=== PATIENT | female | born 1975 | race Caucasian/White ===

== ENCOUNTER 2023-03-05 16:21 | Outpatient (CLI) | payer MEDICARE, SELFPAY | END 2023-03-05 16:22 | disposition home or self-care (01) | PROVIDERS: PCP Family Medicine; Visit Provider Family Medicine | DX: Z13.228 Encounter for screening for other metabolic disorders (principal); R53.83 Other fatigue; E66.01 Morbid (severe) obesity due to excess calories | CPT/HCPCS: 80048; 80061; 84460 ==

== ENCOUNTER 2023-04-08 10:34 | Outpatient (CLI) | payer MEDICARE, SELFPAY ==
--- NOTE | 2023-04-08 11:00 | CRLHL7_ITS ---
For Patients: As a result of the Century Cures Act, medical imaging exams and procedure reports are released immediately into your electronic medical record. You may view this report before your referring provider. If you have questions, please contact your health care provider. Indication: Abd pain, chronic RLQ pain Technique: CT Abdomen/Pelvis w/ 114cc Isovue-[address] Please note that all CT scans at this facility use dose modulation, iterative reconstruction, and/or weight-based dosing when appropriate to reduce radiation dose to as low as reasonably achievable. Comparison: 10/08/2017 Findings: Lung bases are clear. No free intraperitoneal air. Subcentimeter benign cyst in liver is unchanged. Stable small hypodensity in the right hepatic lobe. The gallbladder is normal. No biliary duct dilation. Normal pancreas. Normal spleen. Adrenal glands are normal. The bladder, ureters and kidneys are within normal limits. Incidental subcentimeter cysts within the right kidney. The uterus is normal. Normal right ovary. 1.5 cm simple cyst left ovary. Terminal ileum is normal. Appendix is absent. No bowel obstruction or free fluid. No abscess. No adenopathy. Similar appearance of the endocervix. No fracture. Impression: Postoperative changes of appendectomy. No inflammatory changes. No bowel obstruction. Please note that all CT scans at this facility use dose modulation, iterative reconstruction, and/or weight-based dosing when appropriate to reduce radiation dose to as low as reasonably achievable. Dictated by Kiran Mcconnell MD @ 04/08/2023 3:41:55 PM (Electronically Signed)
== END 2023-04-08 10:35 | disposition home or self-care (01) ==
LOC: CT 10:35
PROVIDERS: PCP Family Medicine; Visit Provider Family Medicine
DX: R10.9 Unspecified abdominal pain (principal); G89.29 Other chronic pain
CPT/HCPCS: 74177; Q9967

== ENCOUNTER 2023-04-15 09:52 | Outpatient (CLI) | payer MEDICARE, SELFPAY ==
--- NOTE | 2023-04-15 11:01 | W.ANESCHARGE ---
Anesthesia Charges Start Date/Time Anesthesia Start Date: 04/15/23 Anesthesia Start Time: 10:35 Stop Date/Time Anesthesia Stop Date: 04/15/23 Anesthesia Stop Time: 11:01
--- NOTE | 2023-04-15 11:09 | W.ANESCHARGE ---
Anesthesia Charges Start Date/Time Anesthesia Start Date: 04/15/23 Anesthesia Start Time: 10:35 Stop Date/Time Anesthesia Stop Date: 04/15/23 Anesthesia Stop Time: 11:01
== END 2023-04-15 09:53 | disposition home or self-care (01) ==
LOC: OP CLINIC 09:53
PROVIDERS: PCP Family Medicine; Visit Provider Internal Medicine
DX: Z12.11 Encounter for screening for malignant neoplasm of colon (principal)
CPT/HCPCS: 00811; 00812; 45378; J2704

== ENCOUNTER 2023-12-05 20:33 | Inpatient (IN) | payer MEDICARE, SELFPAY ==
[2023-12-05 20:48] VITALS: BP 151/105; PULSE 104; RESP 28; TEMP 36.6; O2SAT 93
--- NOTE | 2023-12-05 20:57 | ED.GENADULT ---
HPI - General Adult General Chief complaint: Shortness of Breath/Dyspnea Stated complaint: difficulty breathing Time Seen by Provider: 12/05/23 20:36 History of Present Illness HPI narrative: Patient is a 48 year white female who has history of asthma, has had a cold and had her asthma exacerbate. She was seen in Urgent Care today she had a negative COVID test and a negative chest x-ray. She is unable to get the medications apparently at the pharmacy today. Noted that she has had increasing breathing difficulty day and was brought in by for am neighbor. Patient has history of chronic abdominal pain partial epilepsy mild persistent asthma bore bipolar disorder generalized anxiety disorder. Her O2 sat here on presentation 93% on room air she is afebrile. She was given dexamethasone IM today. Related Data Home Medications ?Medication ?Instructions ?Recorded ?Confirmed cetirizine 10 mg tablet 10 mg PO DAILY 10/30/21 12/05/23 clonazepam 1 mg tablet 1 mg PO QHS PRN insomnia 03/05/23 12/05/23 topiramate 200 mg tablet 700 mg PO DAILY 03/05/23 12/05/23 Previous Rx's ?Medication ?Instructions ?Recorded citalopram 40 mg tablet 40 mg PO DAILY #90 tabs 12/22/21 fluticasone 250 mcg-salmeterol 50 1 inh inhalation BID #60 ea 01/06/23 mcg/dose blistr powdr for inhalation (Advair Diskus) furosemide 20 mg tablet (Lasix) 20 mg PO QDAY #90 tabs 03/05/23 peg 3350-electrolytes 236 240 ml PO Q10M #4,000 mL 03/23/23 gram-22.74 gram-6.74 gram-5.86 gram solution (Golytely) trazodone 50 mg tablet 50 - 100 mg (1 - 2 x 50 mg) PO QHS 04/02/23 #60 tabs ropinirole 4 mg tablet 4 mg PO QHS #90 tabs 05/07/23 albuterol sulfate 2.5 mg/3 mL 2.5 mg (3 mL) inhalation Q4H #75 mL 12/05/23 (0.083 %) solution for nebulization albuterol sulfate 90 mcg/actuation 2 puff inhalation Q4H PRN Asthma 12/05/23 aerosol inhaler #1 ea amoxicillin 500 mg capsule 1,000 mg (2 x 500 mg) PO TID 5 12/05/23 days #30 caps benzonatate 200 mg capsule 200 mg PO TID PRN cough #30 caps 12/05/23 prednisone 10 mg tablet 10 mg PO DIRECTED #30 tabs 12/05/23 Allergies Allergy/AdvReac Type Severity Reaction Status Date / Time bee venom protein (honey bee) Allergy Severe Anaphylaxis Verified 12/05/23 10:02 diphenhydramine Allergy Mild dystonic Verified 12/05/23 10:02 reaction promethazine Allergy Mild dystonic Verified 12/05/23 10:02 reaction prochlorperazine Allergy Unknown dystonic Verified 12/05/23 10:02 reaction Review of Systems Status of ROS: Reports: 6 or more systems reviewed and unremarkable except as noted in History and below [facility] Medical History Restless legs syndrome ?G25.81 - Restless legs syndrome (ICD-10) Partial epilepsy ?G40.109 - Localization-related (focal) (partial) symptomatic epilepsy and epileptic syndromes with simple partial seizures, not intractable, without status epilepticus (ICD-10) Morbid obesity ?E66.01 - Morbid (severe) obesity due to excess calories (ICD-10) Mild persistent asthma ?J45.30 - Mild persistent asthma, uncomplicated (ICD-10) Major depressive disorder ?F32.9 - Major depressive disorder, single episode, unspecified (ICD-10) Generalized anxiety disorder ?F41.1 - Generalized anxiety disorder (ICD-10) Bipolar disorder ?F31.9 - Bipolar disorder, unspecified (ICD-10) Insomnia ?G47.00 - Insomnia, unspecified (ICD-10) Social History Narrative: , 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, 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, 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, 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, 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[place] What is your current living situation?: I presently have a place to live In the past 12 months, utilities in danger of being shut off: yes In past 12 months, lack of transportation kept you from medical appts, meetings, work, or getting things needed for daily living: yes In the past 12 mos, have been you worried that your food would run out before you had money to buy more?: never true In the past 12 mos, the food you bought just didn't last and you didn't have money to buy more?: never true Smoking Status: Never smoker Do you use any of these nicotine containing products: None Second hand tobacco smoke exposure: No How often do you have a drink containing alcohol: never How often do you have six or more drinks on one occasion: Never AUDIT-C Alcohol total score: 0 Non-prescribed substance use: marijuana (any form) How often does anyone, including family, friends and others, physically hurt you: rarely How often does anyone, including family, friends and others, insult or talk down to you: never How often does anyone, including family, friends and others, threaten you with harm: never How often does anyone, including family, friends and others, scream or curse at you: never Little interest or pleasure in doing things: not at all Feeling down, depressed, or hopeless: not at all service: No Exam Narrative: Exam Narrative: Objective: Patient had a negative x-ray done today that was read by Radiology Vital signs show elevated blood pressure, O2 sat is 93% on room air temperature is 98? HEENT is unremarkable Chest shows bi basilar wheezes and mid lung wheezes no crackles noted she does have good air exchange. Pulse regular Extremities good perfusion Mental status patient is very anxious, she denies any bleeding problems or clotting problem. Const: Vital Signs, click to edit/add: Vital Signs - 24 hr 12/05/23 20:48 12/05/23 21:42 Temperature 98 F Pulse Rate [Pulse Oximeter] 104 H Respiratory Rate 28 H Blood Pressure [Ri ght Upper Arm] 151/105 H Pulse Oximetry 93 90 Oxygen Delivery Me thod Room Air Course Vital Signs Vital signs: Initial Vital Signs Temperature 98 F 12/05/23 20:48 Temperature Source Temporal Artery Scan 12/05/23 20:48 Pulse Rate 104 H 12/05/23 20:48 Respiratory Rate 28 H 12/05/23 20:48 Blood Pressure 151/105 H 12/05/23 20:48 Blood Pressure Mean 120 H 12/05/23 20:48 Blood Pressure Position Sitting 12/05/23 20:48 Pulse Oximetry 93 12/05/23 20:48 Oxygen Delivery Method Room Air 12/05/23 20:48 Vital Signs Temperature 98 F 12/05/23 20:48 Pulse Rate 104 H 12/05/23 20:48 Respiratory Rate 28 H 12/05/23 20:48 Blood Pressure 151/105 H 12/05/23 20:48 Pulse Oximetry 93 12/05/23 20:48 Oxygen Delivery Method Room Air 12/05/23 20:48 Temperature 98 F 12/05/23 20:48 Pulse Rate 104 H 12/05/23 20:48 Respiratory Rate 28 H 12/05/23 20:48 Blood Pressure 151/105 H 12/05/23 20:48 Pulse Oximetry 90 12/05/23 21:42 Oxygen Delivery Method Room Air 12/05/23 20:48 Medications Administered Medications: Discontinued Medications Generic Name Dose Route Start Last Admin Trade Name Freq PRN Reason Stop Dose Admin Albuterol/Ipratropium 1 neb 12/05/23 20:56 12/05/23 21:00 Iprat-Albut 0.5-2.5 Mg/3 Ml Neb 12/05/23 20:57 1 neb ONCE ONE Administration Albuterol/Ipratropium 1 neb 12/05/23 22:05 12/05/23 22:12 Iprat-Albut 0.5-2.5 Mg/3 Ml Neb 12/05/23 22:06 1 neb ONCE ONE Administration Sodium Chloride 1,000 mls @ 6,000 mls/hr 12/05/23 21:00 12/05/23 21:20 0.9 % Sodium Chloride 1000 Ml IV 12/05/23 21:09 6,000 mls/hr .Q10M NAZIA Administration Lorazepam 1 mg 12/05/23 20:56 12/05/23 21:26 Lorazepam 2 Mg/Ml Inj IVP 12/05/23 20:57 1 mg ONCE ONE Administration Lorazepam 1 mg 12/05/23 22:06 12/05/23 22:12 Lorazepam 2 Mg/Ml Inj IVP 12/05/23 22:07 1 mg ONCE ONE Administration Methylprednisolone Sodium Succinate 125 mg 12/05/23 20:56 12/05/23 21:25 Methylprednisolone Sod Succ 62.5 Mg/Ml (125) IVP 12/05/23 20:57 125 mg ONCE ONE Administration Medical Decision Making MDM Narrative Medical decision making narrative: 48 year white female with asthma and mental health issues including anxiety bipolar depression, presents with an anxious episode but also with breathing difficulty. She does have some wheezing at the bases of her lungs. Her O2 sat is reassuring. She did get test dexamethasone but I am a give her IV Solu-Medrol 125 for more urgent defect, and give her IV fluid as well as check a CBC and Chem profile. She had a negative COVID test and chest x-ray in the urgent care. Will decide how she can get her medications. Likely the dex s with the pharmacy today. She does have steroids ordered from the pharmacy as well. I think she could take those as prescribed this morning. Would recommend observation fluids recheck as needed. Likely follow up with her regular doctor in the next 2-3 days. Will attempt to get her an albuterol inhaler from the pharmacy at the hospital 2 puffs q.i.d. p.r.n.. Addendum 11:05 p.m. patient wished to go home at this time she is feeling better. I think that is reasonable. She has got her steroids, she has a prescription for tomorrow, given albuterol inhaler to use as needed, return as needed. Follow up with regular doctor in 2-3 days per Discharge Plan Discharge Clinical Impression: Asthma, Anxiety Patient Disposition: Home w/ Parent or Adult Condition: Improved Additional Instructions: Get the medications as prescribed by the urgent care today, we will try and get her an albuterol inhaler 2 puffs 4 times a day as needed, recheck with your regular doctor next 2-3 days, return to the ED as needed. Activity Level: Light activity Discharge Diet: Regular Prescriptions: No Action cetirizine 10 mg tablet 10 mg PO DAILY prednisone 10 mg tablet 10 mg PO DIRECTED Qty: 30 0RF Rx Instructions: Take four (4) tablets by mouth on days 1-3. Take three (3) tablets by mouth on days 4-6. Take two (2) tablets by mouth on days 7-9. Take one (1) tablet by mouth on days 10-12. benzonatate 200 mg capsule 200 mg PO TID PRN (Reason: cough) Qty: 30 0RF albuterol sulfate 2.5 mg /3 mL (0.083 %) solution for nebulization 2.5 mg inhalation Q4H Qty: 75 3RF amoxicillin 500 mg capsule 1,000 mg PO TID 5 Days Qty: 30 0RF albuterol sulfate 90 mcg/actuation HFA aerosol inhaler 2 puff inhalation Q4H PRN (Reason: Asthma) Qty: 1 0RF topiramate 200 mg tablet 700 mg PO DAILY clonazepam 1 mg tablet 1 mg PO QHS PRN (Reason: insomnia) furosemide [Lasix] 20 mg tablet 20 mg PO QDAY Qty: 90 3RF citalopram 40 mg tablet 40 mg PO DAILY Qty: 90 0RF fluticasone propion-salmeterol [Advair Diskus] 250-50 mcg/dose blister with device 1 inh inhalation BID Qty: 60 0RF peg 3350-electrolytes [Golytely] 236-22.74-6.74 -5.86 gram recon soln 240 ml PO Q10M Qty: 4000 0RF Rx Instructions: until fecal effluent is clear trazodone 50 mg tablet 50 - 100 mg PO QHS Qty: 60 5RF ropinirole 4 mg tablet 4 mg PO QHS Qty: 90 2RF Follow Up/Referrals: Kiran Joshi MD [Primary Care Provider] - [facility]
[2023-12-05] MEDS: IPRAT-ALBUT 0.5-2.5 MG/3 ML NEB 1 NEB IH ×2 (21:00→22:12)
[2023-12-05] MEDS: 0.9 % SODIUM CHLORIDE 1000 ml 1,000 ML 6000 ML IV (21:20)
[2023-12-05] MEDS: METHYLPREDNISOLONE SOD SUCC 62.5 MG/ML (125) 125 MG IVP (21:25)
[2023-12-05] MEDS: LORazepam 2 MG/ML inj 1 MG IVP ×2 (21:26→22:12)
[2023-12-05 21:42] VITALS: O2SAT 90
--- NOTE | 2023-12-05 23:07 | PC.NURSE ---
Pt up standing in room, states with coughing she was incontinent of urine. .Room air sats 88-89%, pt states she is feeling better but still sounds tight, occassional dry cough. Pt. placed on oxygen 2L with sats improving to 90-91%.
--- NOTE | 2023-12-05 23:11 | CRLHL7_ITS ---
For Patients: As a result of the Century Cures Act, medical imaging exams and procedure reports are released immediately into your electronic medical record. You may view this report before your referring provider. If you have questions, please contact your health care provider. INDICATION: Cough, hypoxia. COMPARISON: Chest radiograph 12/05/2023. TECHNIQUE: CT of the chest acquired with 95 cc Isovue 370 IV contrast according to the PE protocol. Coronal and sagittal reconstructions. 2D and 3D MIP images for post processing were performed and interpreted on an independent workstation, and 3D images were permanently archived. FINDINGS: Normal heart size. Normal caliber thoracic aorta and central pulmonary arteries. No acute pulmonary embolism identified. No pericardial effusion. No thoracic lymphadenopathy. The imaged thyroid gland appears normal. There are ground-glass and consolidative opacities in the right middle lobe suspicious for pneumonia. Diffuse bronchial wall thickening with scattered mucous plugging. No pleural effusion or pneumothorax. No suspicious pulmonary nodules. No central endobronchial lesion. Few subcentimeter hepatic hypodensities are too small to characterize. The visualized upper abdomen is otherwise unremarkable. Minimal degenerative changes of the spine. IMPRESSION: 1. Negative for acute pulmonary embolism. 2. Right middle lobe consolidative opacities suspicious for pneumonia. 3. Diffuse bronchial wall thickening and scattered mucous plugging suggesting bronchitis. Please note that all CT scans at this facility use dose modulation, iterative reconstruction, and/or weight-based dosing when appropriate to reduce radiation dose to as low as reasonably achievable. Dictated by Francine Peters MD @ 12/06/2023 1:42:34 AM (Electronically Signed)
[2023-12-05 23:33] LABS: Basophils Absolute Auto 0.01 K/uL (0.00-0.30); Basophils Percent Auto 0.1 % (0.0-3.0); Hematocrit 39.6 % (33.0-51.0); Hemoglobin* 12.6 gm/dL (12.0-16.0); Immature Granulocytes Abs Auto 0.05 K/uL (0.00-0.30); Immature Granulocytes Pct Auto 0.7 %; Lymphocytes Percent Auto 12.3 % (20-44); Mean Corpuscular HGB Conc 32 gm/dL (32-36); Mean Corpuscular Hemoglobin 28 pg (26-34); Mean Corpuscular Volume 87 fL (80-100); Neutrophils Percent Auto 83.9 % (42.0-72.0); Platelet Count* 226 K/uL (140-440); RDW Coefficient of Variation % 14.4 % (11.5-15.5); Red Blood Count 4.57 m/uL (4.00-5.20); White Blood Count* 6.98 K/uL (4.50-11.00)
[2023-12-05 23:35] LABS: Slide Review Reflex No
[2023-12-05 23:38] VITALS: BP 106/67; PULSE 103; RESP 16; O2SAT 91
[2023-12-05 23:48] LABS: Chloride* 113 mmol/L (96-114); Potassium* 3.4 mmol/L (3.6-5.1); Sodium* 138 mmol/L (135-149)
[2023-12-05 23:50] LABS: Creatinine* 0.6 mg/dL (0.5-1.5); Estimated Glomerular Filt Rate 112 ml/min
[2023-12-05 23:51] LABS: Anion Gap 8 mEq/L (7-15); Blood Urea Nitrogen* 12 mg/dL (5-24); Calcium* 8.7 mg/dL (8.4-10.6); Carbon Dioxide* 17 mmol/L (20-32); Glucose* 153 mg/dL (60-115)
[2023-12-05 23:54] LABS: C Reactive Protein* 3.4 mg/dL (0.5-1.0)
[2023-12-06] VITALS (14 sets, daily range): BP systolic 109–128; BP diastolic 59–86; PULSE 77–107; RESP 16–22; TEMP 36.4–36.9; O2SAT 89–93; BMI 38.7
[2023-12-06] MEDS: 0.9 % SODIUM CHLORIDE 1000 ml 1,000 ML 6000 ML IV (00:41)
[2023-12-06] MEDS: ALBUTEROL SULFATE 2.5 MG/3 ML VIAL.NEB NEB ×2 (00:42→17:16)
[2023-12-06] MEDS: cefTRIAXone 1 GM in 0.9 % SODIUM CHLORIDE Mini-bag 100 ML IVPB (02:57)
[2023-12-06] MEDS: AZITHROMYCIN 250 MG TABLET 500 MG PO (02:57)
--- NOTE | 2023-12-06 03:32 | PC.NURSE ---
Pt states IV is sore, IV antibiotic finished. IV flushed well but there is slight redness at IV site. IV dc'd. Will check with physician to see if new IV needed for pt.
--- NOTE | 2023-12-06 05:31 | W.PM.THH&P_ITS ---
Telehealth- H&P: HPI History of Present Illness Time Seen by Provider: 05:00 Date Seen: 12/06/23 Chief complaint: difficulty breathing Narrative: Mel Andrade is seen as an Interactive Telehealth visit. 48-year-old female with a past medical history significant for anxiety, morbid obesity, bipolar disorder who presents the hospital with shortness of breath. Patient has been experiencing symptoms of cough and shortness of breath for over a few days. Earlier today she felt significantly weak and short of breath and was noted to be febrile. She went to an urgent care center and that she tried antibiotics. However she was feeling increasingly short of breath. She was discharged from the urgent care, she was provided steroids and antibiotics without any improvement. The patient presented back to the emergency room. In the emergency room she underwent imaging which showed a right middle lobe consolidation suspicious for pneumonia and diffuse bronchial wall thickening and scattered mucus plugging suggestive of bronchitis. Patient has a known history of asthma and has had episodes of asthma-like sensations in the past. However this time, when administered nebulizers, she remained hypoxic with O2 saturations in the mid 80s. Despite steroids nebulizers and antibiotics, she continued to be hypoxic. Internal medicine/hospitalist medicine has been requested admit this patient to the hospital for treatment of acute hypoxic respiratory failure in the setting of community-acquired pneumonia and asthma exacerbation Review of Systems Status of ROS: Reports: 10 or more systems reviewed and unremarkable except as noted in History and below Const: Reports: fever and chills Eyes: Denies: change in vision ENMT: Denies: throat pain Cardio: Reports: shortness of breath with exertion; Denies: chest pain Resp: Reports: shortness of breath, cough and wheezing GI: Denies: abdominal pain : Denies: painful urination Musculo: Denies: back pain Neuro: Reports: headache Psych: Reports: anxiety Endo: Denies: excessive urination Dov/Lymph: Denies: easy bruising Allergy/Immuno: Reports: wheezing PFSH PFSH Medical History Restless legs syndrome ?G25.81 - Restless legs syndrome (ICD-10) Partial epilepsy ?G40.109 - Localization-related (focal) (partial) symptomatic epilepsy and epileptic syndromes with simple partial seizures, not intractable, without status epilepticus (ICD-10) Morbid obesity ?E66.01 - Morbid (severe) obesity due to excess calories (ICD-10) Mild persistent asthma ?J45.30 - Mild persistent asthma, uncomplicated (ICD-10) Major depressive disorder ?F32.9 - Major depressive disorder, single episode, unspecified (ICD-10) Generalized anxiety disorder ?F41.1 - Generalized anxiety disorder (ICD-10) Bipolar disorder ?F31.9 - Bipolar disorder, unspecified (ICD-10) Insomnia ?G47.00 - Insomnia, unspecified (ICD-10) Social History Narrative: , 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, 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, 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, 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, 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[place] What is your current living situation?: I presently have a place to live In the past 12 months, utilities in danger of being shut off: yes In past 12 months, lack of transportation kept you from medical appts, meetings, work, or getting things needed for daily living: yes In the past 12 mos, have been you worried that your food would run out before you had money to buy more?: never true In the past 12 mos, the food you bought just didn't last and you didn't have money to buy more?: never true Smoking Status: Never smoker Do you use any of these nicotine containing products: None Second hand tobacco smoke exposure: No How often do you have a drink containing alcohol: never How often do you have six or more drinks on one occasion: Never AUDIT-C Alcohol total score: 0 Non-prescribed substance use: marijuana (any form) How often does anyone, including family, friends and others, physically hurt you : rarely How often does anyone, including family, friends and others, insult or talk down to you: never How often does anyone, including family, friends and others, threaten you with harm: never How often does anyone, including family, friends and others, scream or curse at you: never Little interest or pleasure in doing things: not at all Feeling down, depressed, or hopeless: not at all service: No Meds Home Medications and Allergies Home Medications ?Medication ?Instructions ?Recorded ?Confirmed ?Type cetirizine 10 mg tablet 10 mg PO DAILY 10/30/21 12/05/23 History clonazepam 1 mg tablet 1 mg PO QHS PRN insomnia 03/05/23 12/05/23 History topiramate 200 mg tablet 700 mg PO DAILY 03/05/23 12/05/23 History Allergies Allergy/AdvReac Type Severity Reaction Status Date / Time bee venom protein (honey bee) Allergy Severe Anaphylaxis Verified 12/05/23 10:02 diphenhydramine Allergy Mild dystonic Verified 12/05/23 10:02 reaction promethazine Allergy Mild dystonic Verified 12/05/23 10:02 reaction prochlorperazine Allergy Unknown dystonic Verified 12/05/23 10:02 reaction Exam Narrative Exam Narrative: Physical Exam GENERAL: ?vital signs reviewed, well developed and nourished, in no distress HEENT: pupils are equal round and reactive to light, extraocular movements are grossly within normal limits and oral mucosa is moist. NECK: Supple without lymphadenopathy or thyromegaly according to nursing staff examination observation HEART: Regular rate and rhythm without any rubs, murmurs, or gallops. LUNGS: severe bilateral wheezing noted on exam ABDOMEN: Observation from nurse assisted exam, abdomen appears soft, nontender, and nondistended with Positive bowel sounds noted. EXTREMITIES: Strength and sensation is observed to be grossly within normal limits in the upper and lower extremities.? No focal strength deficit is observed. SKIN:? Observed warm and dry with color normal Const Vital Signs, click to edit/add: Vital Signs - 24 hr 12/05/23 20:48 12/05/23 21:42 12/05/23 23:38 Temperature 98 F Pulse Rate [Pulse Oximeter] 104 H 103 H Respiratory Rate 28 H 16 Blood Pressure [Right Upper Arm] 151/105 H 106/67 Pulse Oximetry 93 90 91 Oxygen Delivery Method Room Air Nasal Cannula Oxygen Flow Rate 3 12/06/23 00:28 Temperature Pulse Rate [Pulse Oximeter] Respiratory Rate Blood Pressure [Right Upper Arm] Pulse Oximetry 93 Oxygen Delivery Method Nasal Cannula Oxygen Flow Rate 3 Common normals: no apparent distress Resp Effort & inspection: able to speak in complete sentences Auscultation: rhonchi and wheezes Hospitalist - H&P: Result Labs Labs: Short CBC 12/05/23 Range/Units 23:30 WBC 6.98 (4.50-11.00) K/uL Hgb 12.6 (12.0-16.0) gm/dL Hct 39.6 (33.0-51.0) % Plt Count 226 (140-440) K/uL BMP 12/05/23 23:30 Sodium 138 Potassium 3.4 L Chloride 113 Carbon Dioxide 17 L BUN 12 Creatinine 0.6 Glucose 153 H Calcium 8.7 Assessment and Plan Assessment and plan (1) Acute hypoxic respiratory failure: Status: Acute (2) Community acquired pneumonia: Status: Acute (3) Asthma: Status: Acute (4) Morbid obesity: Status: Acute (5) Generalized anxiety disorder: Status: Acute (6) Bipolar disorder: Status: Acute (7) Insomnia: Status: Acute Plan Patient appears to have community-acquired pneumonia and acute hypoxic respiratory failure associated with it. What is complicating her situation is the severe bronchitis with the diffuse thickening of her bronchial [place]. I think this patient needs to be hospitalized with IV steroids and IV antibiotics for treatment of the community-acquired pneumonia with superimposed asthma exacerbation. Once her asthma exacerbation improves, it is possible her respiratory failure will improve and she can potentially go home within 24 hours. However I would be hesitant on sending her home early. This patient is a very interested in leaving early. I did educate her about how important it is to stay and remain for treatment. IV Solu-Medrol, 40 mg every 12 Ceftriaxone 2 g daily 24-hour Azithromycin 500 mg p.o. daily DuoNebs every 4 hours scheduled DuoNebs every 2 hour as needed Total Time Spent Total Time Spent: 40 Telehealth Visit Today's History and Physical is provided via interactive telehealth by Dr. Michael Curtis MD. Patient is located at [place]. Provider is located at [facility]. Nursing staff assisted with the patient's examination. The visit being done today meets criteria for a telehealth visit and the patient or patient's parent and/or gaurdian is aware the visit is a telehealth visit. Camera Start Time 5 AM Camera End Time 540 Telehealth: Statement Statement Telehealth Visit: Today's History and Physical is provided via interactive telehealth by Michael Curtis MD.? Patient is located at [facility].? Provider is located at [facility].? Nursing staff assisted with the patient's exam. The visit being done today meets criteria for a telehealth visit and the patient or patient?s parent/guardian is aware the visit is a telehealth visit. Camera Start Time: 05:00 Camera End Time: 05:20
[2023-12-06] MEDS: ACETAMINOPHEN 500 MG TABLET 1000 MG PO ×2 (06:54→23:10)
--- NOTE | 2023-12-06 07:00 | PC.NURSE ---
PT admitted from ED . Audiable wheezing heard on expiration. Tight breath sound on right side. Afebrile at admission. VSS slightly tachy. Pt I in the room. 2L to maintain sats at 92-93%.
[2023-12-06] MEDS: IPRAT-ALBUT 0.5-2.5 MG/3 ML NEB 1 NEB IH ×5 (08:20→23:09)
[2023-12-06 08:22] LABS: Basophils Absolute Auto 0.01 K/uL (0.00-0.30); Basophils Percent Auto 0.1 % (0.0-3.0); Hematocrit 37.2 % (33.0-51.0); Hemoglobin* 11.9 gm/dL (12.0-16.0); Immature Granulocytes Abs Auto 0.05 K/uL (0.00-0.30); Immature Granulocytes Pct Auto 0.5 %; Lymphocytes Percent Auto 10.7 % (20-44); Mean Corpuscular HGB Conc 32 gm/dL (32-36); Mean Corpuscular Hemoglobin 27 pg (26-34); Mean Corpuscular Volume 86 fL (80-100); Monocytes Percent Auto 6.3 % (0.0-11.0); Neutrophils Percent Auto 82.4 % (42.0-72.0); Platelet Count* 227 K/uL (140-440); RDW Coefficient of Variation % 14.7 % (11.5-15.5); Red Blood Count 4.35 m/uL (4.00-5.20); White Blood Count* 9.77 K/uL (4.50-11.00)
[2023-12-06 08:24] LABS: Slide Review Reflex No
[2023-12-06 08:32] LABS: Chloride* 116 mmol/L (96-114); Potassium* 3.8 mmol/L (3.6-5.1); Sodium* 139 mmol/L (135-149)
[2023-12-06] MEDS: CITALOPRAM HYDROBROMIDE 20 MG TABLET 40 MG PO (08:34)
[2023-12-06] MEDS: guaiFENesin 600 MG TAB.ER.12H PO ×2 (08:34→20:09)
[2023-12-06 08:35] LABS: Anion Gap 4 mEq/L (7-15); Blood Urea Nitrogen* 9 mg/dL (5-24); Carbon Dioxide* 19 mmol/L (20-32); Creatinine* 0.6 mg/dL (0.5-1.5); Est. Creatinine Clearance* 105.42; Estimated Glomerular Filt Rate 112 ml/min
[2023-12-06] MEDS: METHYLPREDNISOLONE SOD SUCC 40 MG/ML IVP ×2 (08:35→20:08)
[2023-12-06] MEDS: SODIUM CHLORIDE 0.9 % (FLUSH) 10 ML SYRINGE 5 ML IVF ×2 (08:35→20:10)
[2023-12-06 08:36] LABS: Calcium* 8.5 mg/dL (8.4-10.6); Glucose* 142 mg/dL (60-115)
--- NOTE | 2023-12-06 10:28 | PM.IMPN1 ---
Progress Note: A&P Assessment and plan (1) Acute hypoxic respiratory failure: Problem details: In setting of community-acquired pneumonia, mucus plugging, acute asthma exacerbation. CT PE study negative for emboli Continue oxygen supplementation, currently 2 L, continuing to wean as able RT consult, nebs, IV steroids, incentive spirometry, aerobika Status: Acute (2) Community acquired pneumonia: Problem details: CT shows right middle lobe consolidative opacities, diffuse bronchial wall thickening and scattered mucous plugging Afebrile, no leukocytosis, CRP 3.4 Continue ceftriaxone and azithromycin, IV steroids Mucinex b.i.d., Tessalon Perles, nebs, incentive spirometry, aerobika Strep pneumo/Legionella, procalcitonin added Status: Acute (3) Asthma: Problem details: Acute, on chronic exacerbation IV steroids Duonebs qid, Albuterol nebs q 2 hours until under better control Management as above, RT assisting Status: Acute (4) Morbid obesity: Problem details: Chronic Status: Acute (5) Generalized anxiety disorder: Problem details: Continue home medications Status: Acute (6) Bipolar disorder: Problem details: Continue home medications Status: Acute (7) Insomnia: Problem details: Continue trazodone Status: Acute (8) Partial epilepsy: Problem details: Continue Topamax, verified 700 mg q.h.s., seizure precautions Status: Acute Plan Continue current cares with IV antibiotics, IV steroids, scheduled nebs, supplemental oxygen. Patient is hopeful she would be able to discharge to home tomorrow Time Spent With Patient Total time spent: Total time spent caring for the patient today was 45 minutes. This includes time spent for the visit reviewing the chart, time spent during the visit, time spent after the visit and documentation and planning in coordination of care. Subjective Date Seen: 12/06/23 Interval history: Patient is seen lying in bed this morning. Continues to have a tight, wheezy cough. Mildly congested. Remains afebrile. Continues on 2 L per NC. Denies headache or dizziness. Denies chest pain but admits ribcage is sore from coughing. No recent nausea, vomiting, diarrhea. Remains anxious to discharge as soon as possible, hopefully by tomorrow she tells me. Exam Narrative: Exam Narrative: PHYSICAL EXAM General: Pleasant, conversant, NAD HEENT: Normocephalic, atraumatic, sclera white, EOMI, oral mucosa moist Cardiovascular: RRR, S1S2. No pitting edema Pulmonary: CTA tight, mild rhonchi, expiratory wheezes throughout. No dyspnea on 2 L Neurological: Alert, answering questions appropriately, cranial nerves intact, no focal findings Extremities: No gross joint deformity or swelling. AROMI. Neurovascularly intact Skin: Warm, dry. Const: Vital Signs, click to edit/add: Vital Signs - 24 hr 12/05/23 20:48 12/05/23 21:42 12/05/23 23:38 Temperature 98 F Pulse Rate [Pulse Oximeter] 104 H 103 H Pulse Rate [Right Pulse Oximeter] Respiratory Rate 28 H 16 Blood Pressure [Ri ght Arm] Blood Pressure [Ri ght Upper Arm] 151/105 H 106/67 Pulse Oximetry 93 90 91 Oxygen Delivery Me thod Room Air Nasal Cannula Oxygen Flow Rate 3 12/06/23 00:28 12/06/23 05:01 12/06/23 05:01 Temperature Pulse Rate [Pulse Oximeter] Pulse Rate [Right Pulse Oximeter] 104 H Respiratory Rate 22 22 Blood Pressure [Ri ght Arm] 128/86 Blood Pressure [Ri ght Upper Arm] Pulse Oximetry 93 93 92 Oxygen Delivery Me thod Nasal Cannula Nasal Cannula Nasal Cannula Oxygen Flow Rate 3 2.5 2 12/06/23 05:25 12/06/23 07:30 12/06/23 07:59 Temperature 98.4 F Pulse Rate [Pulse Oximeter] Pulse Rate [Right Pulse Oximeter] 100 100 Respiratory Rate 20 20 Blood Pressure [Ri ght Arm] 118/60 Blood Pressure [Ri ght Upper Arm] Pulse Oximetry 92 93 Oxygen Delivery Me thod Nasal Cannula Oxygen Flow Rate 2 Labs Labs: Laboratory Results - last 24 hr 12/05/23 12/06/23 23:30 08:12 WBC 6.98 9.77 RBC 4.57 4.35 Hgb 12.6 11.9 L Hct 39.6 37.2 MCV 87 86 MCH 28 27 MCHC 32 32 RDW Coeff of Cynthia 14.4 14.7 Plt Count 226 227 Neut % (Auto) 83.9 H 82.4 H Lymph % (Auto) 12.3 L 10.7 L [place] % (Auto) 3.0 6.3 Eos % (Auto) 0.0 0.0 Baso % (Auto) 0.1 0.1 Neut # (Auto) 5.90 8.10 H Lymph # (Auto) 0.90 1.00 [place] # (Auto) 0.20 0.60 Eos # (Auto) 0.00 0.00 Baso # (Auto) 0.01 0.01 Abs Immat Gran (auto) 0.05 0.05 Imm/Tot Granulo (auto) 0.7 0.5 Sodium 138 139 Potassium 3.4 L 3.8 Chloride 113 116 H Carbon Dioxide 17 L 19 L Anion Gap 8 4 L BUN 12 9 Creatinine 0.6 0.6 Estimated Creat Clear 105.42 Estimated GFR 112 112 Glucose 153 H 142 H Calcium 8.7 8.5 C-Reactive Protein 3.4 H
[2023-12-06 11:15] LABS: Procalcitonin* 0.06 ng/mL (<0.50)
[2023-12-06] MEDS: BENZONATATE 100 MG CAPSULE 200 MG PO ×2 (14:37→20:10)
--- NOTE | 2023-12-06 15:33 | PC.NURSE ---
End of Shift: Patient pleasant and cooperative, A&O. VSS, afebrile. SpO2 maintained above 90% this shift. Patient denies pain this shift. Tolerating regular diet. Independent in room.
--- NOTE | 2023-12-06 18:26 | PC.NURSE ---
Shift [id number]: Pt is pleasant, alert, oriented. HR is tachycardic (ranging from 90-110) and O2 stats are in the low 90s on 1 L. Pt is trying to wean?off O2, RT said this is acceptable if her stats stay at or above 90, when we received pt she was on room air sitting in the low 90s for a short amount of time, though she then dropped to the high 80s and had to be put on 0.5 L of O2, this still had de-stats in the high 80s so she was bumped to 1 L of O2. ?PRN albuterol was given around 1700. Incentive Spirometer and Arobika therapy are stopped at this time per RT. There is a notable inspiratory Rhonchi bilaterally. Pt also has edema of the feet and ankles bilaterally, non-pitting. No complaints of pain. Up with IND. Pt on a regular diet and tolerates well. ?
[2023-12-06] MEDS: ENOXAPARIN 40 MG/0.4 ML INJ SUBCUT (20:08)
[2023-12-06] MEDS: TOPIRAMATE 100 MG TABLET PO (20:09)
[2023-12-06] MEDS: ROPINIROLE HCL 1 MG TABLET 4 MG PO (20:10)
[2023-12-06] MEDS: OMEPRAZOLE 20 MG CAPSULE DR 40 MG PO (20:14)
[2023-12-07] MEDS: ASPIRIN 81 MG TAB.CHEW 324 MG PO (01:47)
[2023-12-07] MEDS: MORPHINE 2 MG/ML inj IVP (02:24)
[2023-12-07 02:25] LABS: Troponin I* < 0.01 ng/mL (0.01-0.04)
[2023-12-07] MEDS: cefTRIAXone 2 GM in 0.9 % SODIUM CHLORIDE Mini-bag 100 ML IVPB (02:27)
[2023-12-07 03:00] VITALS: BP 119/72; PULSE 75; RESP 18; TEMP 36.4; O2SAT 95
[2023-12-07] MEDS: METOPROLOL TARTRATE 1 MG/ML inj 2.5 MG IVP (03:35)
[2023-12-07] MEDS: IPRAT-ALBUT 0.5-2.5 MG/3 ML NEB 1 NEB IH ×2 (03:35→06:29)
[2023-12-07] MEDS: OMEPRAZOLE 20 MG CAPSULE DR 40 MG PO (06:28)
[2023-12-07] MEDS: AZITHROMYCIN 250 MG TABLET 500 MG PO (06:28)
[2023-12-07] MEDS: ACETAMINOPHEN 500 MG TABLET 1000 MG PO (06:29)
[2023-12-07 06:33] LABS: Hematocrit 36.1 % (33.0-51.0); Hemoglobin* 11.3 gm/dL (12.0-16.0); Mean Corpuscular HGB Conc 31 gm/dL (32-36); Mean Corpuscular Hemoglobin 27 pg (26-34); Mean Corpuscular Volume 88 fL (80-100); Platelet Count* 222 K/uL (140-440); Red Blood Count 4.12 m/uL (4.00-5.20); White Blood Count* 12.99 K/uL (4.50-11.00)
--- NOTE | 2023-12-07 06:36 | PC.NURSE ---
End of shift [id number]: Pt has been A&O and afebrile overnight. She requested her daily Prilosec at HS for c/o heartburn. Pt requested PRN Tylenol @ 2310 & 0630 for c/o headache from coughing. At 0130 RN noted HR sustained in the 160s-180s from her pulse oximeter- entered room and pt was having an episode of CP, nausea, diaphoresis and dizziness. EKG obtained & by the time she was hooked up, HR returned to SR in the 60s-80s. Farzaneh FLORES evaluated pt and ordered Troponin (>0.01), ASA, IV metoprolol x1 and IV morphine x1. At first, pt refused IV morphine and IV metoprolol since CP resolved quickly. Later on she requested both meds as CP returned and radiated to her left arm and between posterior shoulder blades. Pt was hesitant on getting next scheduled dose of DuoNeb but ended up wanting it d/t chest tightness & increased coughing fits. She was able to wean off supplemental O2 sats reading 90-95% on RA. PIV in right AC SL and C/D/I. TELE has shown NSR since SVT episode. She remains independent in her room without any gait issues. ?
[2023-12-07 06:51] LABS: Slide Review Reflex No
[2023-12-07 06:52] LABS: Chloride* 113 mmol/L (96-114); Potassium* 4.1 mmol/L (3.6-5.1); Sodium* 139 mmol/L (135-149)
[2023-12-07 06:54] LABS: Creatinine* 0.7 mg/dL (0.5-1.5); Est. Creatinine Clearance* 90.36; Estimated Glomerular Filt Rate 108 ml/min
[2023-12-07 06:55] LABS: Anion Gap 6 mEq/L (7-15); Blood Urea Nitrogen* 12 mg/dL (5-24); Carbon Dioxide* 20 mmol/L (20-32); Glucose* 113 mg/dL (60-115)
[2023-12-07 06:56] LABS: Calcium* 8.5 mg/dL (8.4-10.6)
[2023-12-07 06:58] LABS: C Reactive Protein* 1.2 mg/dL (0.5-1.0)
[2023-12-07 08:10] VITALS: BP 101/68; PULSE 78; RESP 20; TEMP 36.8; O2SAT 96
[2023-12-07 08:50] VITALS: O2SAT 95
--- NOTE | 2023-12-07 09:05 | P.DS_ITS ---
DS: Providers Provider Date Seen: 12/07/23 Date of admission: 12/06/23 08:00 Primary care physician: Kiran Joshi MD Admitting Clinician: Michael Curtis MD Consults: 12/06/23 05:23 Consult to Respiratory Therapy [CONS] Routine Comment: Reason(s) for RT Consult:: New COPD/Asthma Diag Attending Physician on discharge: JUAN Goodwin, PA-C [facility] Date of Discharge: 12/07/23 DS: Diagnosis Discharge Diagnosis (1) Acute hypoxic respiratory failure: Status: Resolved Problem details: Oxygen saturation 89% in ED In setting of community-acquired pneumonia, mucus plugging, acute asthma exacerbation. CT PE study negative for emboli. Admitted on 2 L oxygen supplementation, weaned to room air prior to discharge. RT consulted, managed with scheduled nebs, IV steroids. Respiratory therapy recommending outpatient follow-up with PCP for consideration of formal sleep study. (2) Community acquired pneumonia: Status: Acute Problem details: CT shows right middle lobe consolidative opacities, diffuse bronchial wall thickening and scattered mucous plugging Afebrile, no leukocytosis, CRP 3.4, Strep pneumo/Legionella ordered but not collected, procalcitonin 0.06 Initiated on ceftriaxone and azithromycin, transitioned to oral cefpodoxime and azithromycin to complete a 10 day course of antibiotics. Initiated on IV steroids, transitioned to oral to complete 5 day course. Mucinex b.i.d., Tessalon Perles, nebs, incentive spirometry, aerobika (3) Asthma: Status: Chronic Problem details: Acute, on chronic exacerbation. Nebulizer medications at home were . IV steroids initiated, transitioned to oral on discharge. Duonebs qid, Albuterol nebs prn (4) Morbid obesity: Status: Acute Problem details: Chronic (5) Generalized anxiety disorder: Status: Acute Problem details: Continued home medications (6) Bipolar disorder: Status: Acute Problem details: Continued home medications (7) Insomnia: Status: Acute Problem details: Continued trazodone. RT recommending formal sleep study as well. (8) Partial epilepsy: Status: Acute Problem details: Continue Topamax, verified 700 mg q.h.s. (9) Tachycardia: Status: Acute Problem details: Night of 12/05, patient developed tachycardia, reported as SVT, with diaphoresis and chest pain, troponin < 0.01. Blood pressure remained stable. SVT resolved with bearing down. By the time the EKG was obtained, NSR with ventricular rate of 66 was noted. No further recurrence. No previous history. DS: Summary Hospital Course Hospital Course: 48 year old female past medical history significant for asthma, anxiety, MDD, bipolar disorder, partial epilepsy, was admitted to the medical floor for acute hypoxic respiratory failure in setting of acute community-acquired pneumonia. Course of care and details as noted above. Acute respiratory failure resolved prior to discharge. Patient reporting feeling significantly better and anxious to discharge to home. Continued on oral medications for community-acquired pneumonia. No further recurrence of tachycardia. Recommend close outpatient follow-up with PCP. Consider outpatient formal sleep study as well as recommended by respiratory therapy. Status at Discharge Overall status at discharge: patient is not back to baseline Time Spent with Patient Time attestation: Total time spent providing and/or coordinating discharge services: Time spent: Greater than 30 minutes Exam Narrative: Exam Narrative: PHYSICAL EXAM General: Pleasant, conversant, NAD Cardiovascular: RRR Pulmonary: No dyspnea, breath sounds improved decreased rhonchi and expiratory wheezes appreciated Neurological: Alert, answering questions appropriately Skin: Warm, dry. Const: Vital Signs, click to edit/add: Vital Signs - 24 hr 12/06/23 11:17 12/06/23 15:42 12/06/23 15:46 Temperature 98.3 F 97.6 F Pulse Rate [Right Pulse Oximeter] 98 102 H 102 H Respiratory Rate 20 18 18 Blood Pressure [Le ft Arm] Blood Pressure [Ri ght Arm] 109/59 L 116/70 Pulse Oximetry 92 92 Oxygen Delivery Me thod Nasal Cannula Room Air Oxygen Flow Rate 1 12/06/23 15:46 12/06/23 17:05 12/06/23 17:07 Temperature Pulse Rate [Right Pulse Oximeter] 107 H Respiratory Rate Blood Pressure [Le ft Arm] Blood Pressure [Ri ght Arm] Pulse Oximetry 92 89 90 Oxygen Delivery Me thod Room Air Room Air Nasal Cannula Oxygen Flow Rate 0.5 12/06/23 17:40 12/06/23 17:42 12/06/23 19:00 Temperature 98.2 F Pulse Rate [Right Pulse Oximeter] 77 Respiratory Rate 16 Blood Pressure [Le ft Arm] 110/69 Blood Pressure [Ri ght Arm] Pulse Oximetry 89 92 90 Oxygen Delivery Me thod Nasal Cannula Nasal Cannula Nasal Cannula Oxygen Flow Rate 0.5 1 1 12/06/23 23:00 12/06/23 23:00 12/06/23 23:00 Temperature Pulse Rate [Right Pulse Oximeter] 86 Respiratory Rate 18 18 Blood Pressure [Le ft Arm] Blood Pressure [Ri ght Arm] Pulse Oximetry 93 93 Oxygen Delivery Me thod Nasal Cannula Oxygen Flow Rate 0.5 12/06/23 23:00 12/07/23 03:00 12/07/23 08:10 Temperature 98.2 F 97.6 F 98.3 F Pulse Rate [Right Pulse Oximeter] 86 75 78 Respiratory Rate 18 18 20 Blood Pressure [Le ft Arm] 116/73 119/72 101/68 Blood Pressure [Ri ght Arm] Pulse Oximetry 93 95 96 Oxygen Delivery Me thod Nasal Cannula Room Air Room Air Oxygen Flow Rate 0.5 12/07/23 08:50 12/07/23 08:50 Temperature Pulse Rate [Right Pulse Oximeter] Respiratory Rate Blood Pressure [Le ft Arm] Blood Pressure [Ri ght Arm] Pulse Oximetry 95 95 Oxygen Delivery Me thod Room Air Oxygen Flow Rate DS: Data Data Completed and Pending Labs on day of discharge: Labs from last 24 hours 12/07/23 12/07/23 12/06/23 06:10 01:45 10:35 WBC 12.99 H RBC 4.12 Hgb 11.3 L Hct 36.1 MCV 88 MCH 27 MCHC 31 L Plt Count 222 Sodium 139 Potassium 4.1 Chloride 113 Carbon Dioxide 20 Anion Gap 6 L BUN 12 Creatinine 0.7 Estimated Creat Clear 90.36 Estimated GFR 108 Glucose 113 Calcium 8.5 Troponin I < 0.01 L C-Reactive Protein 1.2 H Procalcitonin Lab Acknowledgement Test Added 12/06/23 08:12 WBC RBC Hgb Hct MCV MCH MCHC Plt Count Sodium Potassium Chloride Carbon Dioxide Anion Gap BUN Creatinine Estimated Creat Clear Estimated GFR Glucose Calcium Troponin I C-Reactive Protein Procalcitonin 0.[address] scan - chest: Attestation: I have reviewed the pertinent imaging results. Radiologist's impression: CT of the chest acquired with 95 cc Isovue 370 IV contrast according to the PE protocol. Coronal and sagittal reconstructions. 2D and 3D MIP images for post processing were performed and interpreted on an independent workstation, and 3D images were permanently archived. FINDINGS: Normal heart size. Normal caliber thoracic aorta and central pulmonary arteries. No acute pulmonary embolism identified. No pericardial effusion. No thoracic lymphadenopathy. The imaged thyroid gland appears normal. There are ground-glass and consolidative opacities in the right middle lobe suspicious for pneumonia. Diffuse bronchial wall thickening with scattered mucous plugging. No pleural effusion or pneumothorax. No suspicious pulmonary nodules. No central endobronchial lesion. Few subcentimeter hepatic hypodensities are too small to characterize. The visualized upper abdomen is otherwise unremarkable. Minimal degenerative changes of the spine. IMPRESSION: 1. Negative for acute pulmonary embolism. 2. Right middle lobe consolidative opacities suspicious for pneumonia. 3. Diffuse bronchial wall thickening and scattered mucous plugging suggesting bronchitis. Discharge Plan Discharge Disposition: Home, Self-Care Date of Admission: 12/06/23 08:00 Attending Provider on Discharge: Joy Burk Primary Care Provider: Kiran Joshi Condition: Improved Anticipated Discharge Date/Time: 12/07/23 08:50 Discharge Medications: New guaifenesin [Mucinex] 600 mg Tablet Extended Release 12hr 600 mg PO BID Qty: 30 0RF prednisone 20 mg tablet 40 mg PO DAILY 3 Days Qty: 6 0RF Probiotic 3 billion cell capsule 3,000 mmu cells PO DAILY Qty: 30 0RF Rx Instructions: administer with a meal ipratropium-albuterol 0.5 mg-3 mg(2.5 mg base)/3 mL Solution For Nebulization 2.5 ml inhalation Q4H PRN (Reason: Shortness Of Breath Or Wheezing) Qty: 90 0RF albuterol sulfate 2.5 mg /3 mL (0.083 %) Solution For Nebulization 2.5 mg NEB Q4H PRNQty: 90 0RF cefpodoxime 200 mg tablet 200 mg PO BID Qty: 16 0RF Rx Instructions: must administer with a meal/food azithromycin 500 mg tablet 500 mg PO DAILY 1 Days Qty: 1 0RF albuterol sulfate 90 mcg/actuation HFA aerosol inhaler 1 inh inhalation QID PRN (Reason: shortness of breath or wheezing) Qty: 8.5 0RF Continued cetirizine 10 mg tablet 10 mg PO DAILY albuterol sulfate 2.5 mg /3 mL (0.083 %) solution for nebulization 2.5 mg inhalation Q4H Qty: 75 3RF albuterol sulfate 90 mcg/actuation HFA aerosol inhaler 2 puff inhalation Q4H PRN (Reason: Asthma) Qty: 1 0RF topiramate 200 mg tablet 700 mg PO DAILY clonazepam 1 mg tablet 1 mg PO QHS PRN (Reason: insomnia) furosemide [Lasix] 20 mg tablet 20 mg PO DAILY PRN (Reason: edema) citalopram 40 mg tablet 40 mg PO DAILY Qty: 90 0RF fluticasone propion-salmeterol [Advair Diskus] 250-50 mcg/dose blister with device 1 inh inhalation BID Qty: 60 0RF trazodone 50 mg tablet 50 - 100 mg PO QHS Qty: 60 5RF ropinirole 4 mg tablet 4 mg PO QHS Qty: 90 2RF Discontinued benzonatate 200 mg capsule 200 mg PO TID PRN (Reason: cough) Qty: 30 0RF amoxicillin 500 mg capsule 1,000 mg PO TID 5 Days Qty: 30 0RF Discharge Orders: Discharge Order (Routine); Ordered 12/07/23 Ordered By: Joy Burk Patient Education: Prednisone (By mouth), Guaifenesin (By mouth), Azithromycin (By mouth), Cefpodoxime Proxetil (By mouth), Bacterial Pneumonia (GEN) Additional Instructions: You have one more day of Azithromycin and 8 days of cefpodoxime. Finish the steroids (take this in the morning). Take the mucinex for the mucus plugging. Continue to use the duoneb and albuterol nebs until your sympotms have significantly improved or resolved. Respiratory therapy recommends outpatient follow-up with PCP for consideration of a formal sleep study. Activity Level: Activity as Tolerated Discharge Diet: Regular Follow Up Appointments: Kiran Joshi MD [Primary Care Provider] - 12/08/23 10:00 am ([facility] for follow-up.) Forms: [employer] Info Instructions
[2023-12-07] MEDS: CETIRIZINE HCL 10 MG TABLET PO (09:07)
[2023-12-07] MEDS: CITALOPRAM HYDROBROMIDE 20 MG TABLET 40 MG PO (09:07)
[2023-12-07] MEDS: SODIUM CHLORIDE 0.9 % (FLUSH) 10 ML SYRINGE 5 ML IVF (09:08)
[2023-12-07] MEDS: guaiFENesin 600 MG TAB.ER.12H PO (09:08)
[2023-12-07] MEDS: METHYLPREDNISOLONE SOD SUCC 40 MG/ML IVP (09:08)
[2023-12-07 10:06] VITALS: PULSE 66
--- NOTE | 2023-12-07 10:33 | PC.NURSE ---
Patient discharged home with neighbor. All belongings sent home with patient. [facility] MD thakkar for patient to use aerobika as RT was not available today. Patient aware of this. PIV discontinued and catheter intact. Patient has follow up with PCP tomorrow. Recommended a sleep study. Patient was tolerating a regular diet, denies pain, voiding without difficulty, passing flatus and states i feel so much better. Left via wheelchair escort.
--- NOTE | 2023-12-08 11:06 | PM.EN ---
Chart Event Note Date Seen: 12/08/23 Chart Event Note: Patient's Cefpodoxime not covered by insurance, we did not receive a PA to complete. Transitioned to Doxycycline (This was sent to [facility]).
== END 2023-12-07 10:35 | disposition home or self-care (01) | DRG 193 ==
LOC: ED 12-06 00:39 → MEDSURG 12-06 04:11
PROVIDERS: Family Medicine; Physician Assistant; Admitting Provider Student in an Organized Health Care Education/Training Program; Emergency Provider Emergency Medicine; PCP Family Medicine; Visit Provider Family Medicine
DX: J18.9 Pneumonia, unspecified organism (principal); J96.01 Acute respiratory failure with hypoxia; J45.31 Mild persistent asthma with (acute) exacerbation; G40.109 Localization-related (focal) (partial) symptomatic epilepsy and epileptic syndromes with simple partial seizures, not intractable, without status epilepticus; I47.10 Supraventricular tachycardia, unspecified; E66.01 Morbid (severe) obesity due to excess calories; Z68.38 Body mass index [BMI] 38.0-38.9, adult; F41.1 Generalized anxiety disorder; F31.9 Bipolar disorder, unspecified; G25.81 Restless legs syndrome; G47.00 Insomnia, unspecified
CPT/HCPCS: 36415; 71260; 80048; 84145; 84484; 85025; 85027; 86140; 93005; 94640; 94664; 94761; 99284; 99285; A9270; G0378; J0696; J1650; J2060; J2270; J2919; J7030; Q9967

== ENCOUNTER 2024-03-21 03:45 | Outpatient (CLI) | payer OTHER, SELFPAY | END 2024-03-21 03:46 | disposition home or self-care (01) | LOC: AMB 04-01 08:05 | PROVIDERS: PCP Family Medicine; Visit Provider Family Medicine | DX: R07.89 Other chest pain (principal) | CPT/HCPCS: A0425; A0427 ==

== ENCOUNTER 2024-03-21 04:20 | Emergency (ER) | payer OTHER, SELFPAY ==
[2024-03-21 04:24] VITALS: BP 129/79; PULSE 73; RESP 20; TEMP 36.7; O2SAT 99; BMI 38.3
[2024-03-21 04:30] VITALS: O2SAT 99
--- NOTE | 2024-03-21 04:50 | CRLHL7_ITS ---
For Patients: As a result of the Century Cures Act, medical imaging exams and procedure reports are released immediately into your electronic medical record. You may view this report before your referring provider. If you have questions, please contact your health care provider. INDICATION: Chest pain and dyspnea COMPARISON: December 05, 2023 TECHNIQUE: PA and lateral views of the chest were acquired FINDINGS: TUBES AND LINES: None. HEART AND MEDIASTINUM: The heart size is normal. The mediastinal contour appears normal for patient age. LUNGS AND PLEURAL SPACES: The lungs appear normal.The pleural spaces are unremarkable. OSSEOUS STRUCTURES: Age-appropriate appearance. No acute focal finding. IMPRESSION: No evidence of active pulmonary disease. Dictated by Michael Little MD @ 03/21/2024 5:24:18 AM (Electronically Signed)
--- NOTE | 2024-03-21 04:52 | ED_ITS ---
HPI - General Adult General Chief complaint: Arrhythmia/Palpitations Stated complaint: chest discomfort Time Seen by Provider: 03/21/24 04:29 Source: patient and EMS Mode of arrival: ambulatory Limitations: no limitations History of Present Illness HPI narrative: 48-year-old female presents to the emergency department by EMS. Patient reports that she has had a fever for a couple of days and sore throat with headache also. Fevers have been up to 103. 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 Patient does have 1 prior documented episode of SVT while she was hospitalized and ill at the time earlier this year. Has not had a Holter monitor or any type of similar monitoring in the past. Has had no prior complications are episodes since that event in November. Patient says that she woke about an hour prior to arrival drenched in sweat with a feeling of rapid heart rate. She checked her pulse and it was around 190. Assuming that she was back in SVT, she tried to cardiovert herself with vagal maneuvers which initially failed. She did call 911 and through additional discussion with the dispatcher, did continue trying vagal maneuvers and was able to convert prior to EMS arrival. She reports that she did have another episode that lasted about 30 seconds but spontaneously converted with this. She is asymptomatic to the rapid heart rate now but has a mild discomfort underneath her left breast. No shortness of breath, dizziness, nausea or other changes. No history of cardiac stents, EP studies, stress testing. No prior history of DVT or PE. Past medical history notable for depression and seizures. She reports that she is not taking any prescription medication for those conditions but does take ropinirole for restless leg. Hospitalization reviewed from November. Allergy list rough flex dystonic reaction to Compazine, promethazine and IV Benadryl. Nonsmoker. No prior chest surgeries. ROS is notable for the HEENT, generalized and cardiac symptoms as above, otherwise denies times 12 systems. Related Data Home Medications ?Medication ?Instructions ?Recorded ?Confirmed cetirizine 10 mg tablet 10 mg PO DAILY 10/30/21 03/21/24 topiramate 200 mg tablet 700 mg PO DAILY 03/05/23 03/21/24 furosemide 20 mg tablet (Lasix) 20 mg PO DAILY PRN edema 12/06/23 03/21/24 Previous Rx's ?Medication ?Instructions ?Recorded citalopram 40 mg tablet 40 mg PO DAILY #90 tabs 12/22/21 fluticasone 250 mcg-salmeterol 50 1 inh inhalation BID #60 ea 01/06/23 mcg/dose blistr powdr for inhalation (Advair Diskus) trazodone 50 mg tablet 50 - 100 mg (1 - 2 x 50 mg) PO QHS 04/02/23 #60 tabs ropinirole 4 mg tablet 4 mg PO QHS #90 tabs 05/07/23 albuterol sulfate 2.5 mg/3 mL 2.5 mg (3 mL) inhalation Q4H #75 mL 12/05/23 (0.083 %) solution for nebulization albuterol sulfate 90 mcg/actuation 2 puff inhalation Q4H PRN Asthma 12/05/23 aerosol inhaler #1 ea albuterol sulfate 2.5 mg/3 mL 2.5 mg (3 mL) NEB Q4H PRN #90 ea 12/07/23 (0.083 %) solution for nebulization albuterol sulfate 90 mcg/actuation 1 inh inhalation QID PRN shortness 12/07/23 aerosol inhaler of breath or wheezing #8.5 grams ipratropium 0.5 mg-albuterol 3 mg 2.5 ml inhalation Q4H PRN 12/07/23 (2.5 mg base)/3 mL nebulization Shortness Of Breath Or Wheezing soln #90 ea lactobacillus combination no.4 3 3,000 mmu cells PO DAILY #30 caps 12/07/23 billion cell capsule (Probiotic) Allergies Allergy/AdvReac Type Severity Reaction Status Date / Time bee venom protein (honey bee) Allergy Severe Anaphylaxis Verified 03/21/24 04:27 diphenhydramine Allergy Mild dystonic Verified 03/21/24 04:27 reaction promethazine Allergy Mild dystonic Verified 03/21/24 04:27 reaction prochlorperazine Allergy Unknown dystonic Verified 03/21/24 04:27 reaction PFSH PFSH Medical History Partial epilepsy ?G40.109 - Localization-related (focal) (partial) symptomatic epilepsy and epileptic syndromes with simple partial seizures, not intractable, without status epilepticus (ICD-10) Restless legs syndrome ?G25.81 - Restless legs syndrome (ICD-10) Partial epilepsy ?G40.109 - Localization-related (focal) (partial) symptomatic epilepsy and epileptic syndromes with simple partial seizures, not intractable, without status epilepticus (ICD-10) Morbid obesity ?E66.01 - Morbid (severe) obesity due to excess calories (ICD-10) Mild persistent asthma ?J45.30 - Mild persistent asthma, uncomplicated (ICD-10) Major depressive disorder ?F32.9 - Major depressive disorder, single episode, unspecified (ICD-10) Generalized anxiety disorder ?F41.1 - Generalized anxiety disorder (ICD-10) Bipolar disorder ?F31.9 - Bipolar disorder, unspecified (ICD-10) Insomnia ?G47.00 - Insomnia, unspecified (ICD-10) Social History Narrative: , 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, 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, 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, 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, 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[place] What is your current living situation?: I presently have a place to live Problems where you live: no known problems Problems where you live details: none In the past 12 months, utilities in danger of being shut off: no In the past 12 mos, have been you worried that your food would run out before you had money to buy more?: never true In the past 12 mos, the food you bought just didn't last and you didn't have money to buy more?: never true Highest level of school completed/degree received: some college, no degree Smoking Status: Former smoker What tobacco products do you use: cigarettes Smoking quit date/years: <= 15 years ago Do you use any of these nicotine containing products: None Second hand tobacco smoke exposure: No How often do you have a drink containing alcohol: never How often do you have six or more drinks on one occasion: Never AUDIT-C Alcohol total score: 0 Non-prescribed substance use: marijuana (any form) Caffeine: Yes How often does anyone, including family, friends and others, physically hurt you : never How often does anyone, including family, friends and others, insult or talk down to you: never How often does anyone, including family, friends and others, threaten you with harm: never How often does anyone, including family, friends and others, scream or curse at you: never service: No Exam Const: Vital Signs, click to edit/add: Vital Signs - 24 hr 03/21/24 04:24 Temperature 98.0 F Pulse Rate [Right Pulse Oximeter] 73 Respiratory Rate 20 Blood Pressure [Ri ght Upper Arm] 129/79 Pulse Oximetry 99 Oxygen Delivery Me thod Room Air Documenting provider has reviewed patient's vital signs: yes Common normals: no apparent distress and alert General appearance: cooperative Other: Good historian. Well nourished and well hydrated HENMT: Common normals: normocephalic Head and scalp: normocephalic Face and sinus: normal facial exam Other: Moist mucous membranes does have some redness to the pharyngeal arches and blister pattern. No exudate. Eye: Common normals: conjunctivae normal General eye: normal appearance of both eyes Conjunctiva: conjunctiva(e) normal Neck & C-Spine: Common normals: no lymphadenopathy General: normal visual inspection Resp: Common normals: normal respiratory effort, no use of accessory muscles and clear to auscultation bilaterally Effort & inspection: able to speak in complete sentences Auscultation: clear to auscultation bilaterally Cardio: Common normals: regular rate, regular rhythm, S1 normal heart sound, S2 normal heart sound and no murmurs Rate: regular rate Rhythm: regular rhythm Heart sounds: S1 normal and S2 normal GI: Common normals: Normal to inspection, nondistended, normoactive bowel sounds present, soft to palpation, non-tender, no hepatosplenomegaly and no masses Palpation: soft and no hepatosplenomegaly Extremity: Common normals: normal to inspection, normal capillary refill and no pedal edema Neuro: Sensorium/orientation: alert Speech: speech normal Motor exam: no movement abnormalities noted Psych: Appearance: grossly normal Attitude: engaged Attention/concentration: attention grossly intact Memory/cognition: memory grossly intact Insight: insight good Judgement: judgment good Skin: Common normals: no rashes or lesions noted General skin exam: no rashes or lesions noted Course Course ED Course: 48-year-old female with recent febrile illness had an episode of tachycardia prior to arrival that is suspicious for supraventricular tachycardia. Was likely exacerbated by acute illness. Patient says that she feels dehydrated at this time and does have a little bit of residual chest discomfort. Will obtain some basic cardiac and infectious labs, chest x-ray, viral swabs, strep swab. Will give 500 mL of normal saline. EKG. public service representative for a couple of hours to ensure no abnormalities. Would benefit from ZIO patch and outpatient follow- up. Reevaluation(s) Time of Reevaluation #1: 05:57 Reevaluation #1: Patient remaining asymptomatic on re-evaluation. We have not noticed any return of SVT or abnormal heart rhythm. I do suspect that this was an episode of SVT that she had at home as we did document 1 in a previous hospitalization. Counseled patient that this was likely brought on by acute illness but she may have more of these episodes then she is realizing. I would recommend a ZIO patch. This is ordered. Use discussed. She will need to return the device and also follow up with her primary care provider regarding the results. I do think that her recent sore throat, achiness and fever are from a viral illness, would have suspected influenza. Swabs could be false negative but she is out of a window where Tamiflu would be appropriate. Counseled on Tylenol and ibuprofen as needed. Her remainder of workup is reassuring. Alarm symptoms reviewed that would warrant ED presentation. Patient verbalizes understanding and agreement. Vital Signs Vital signs: Initial Vital Signs Temperature 98.0 F 03/21/24 04:24 Temperature Source Temporal Artery Scan 03/21/24 04:24 Pulse Rate 73 03/21/24 04:24 Pulse Rhythm Regular 03/21/24 04:24 Pulse Strength 3+ Normal 03/21/24 04:24 Respiratory Rate 20 03/21/24 04:24 Blood Pressure 129/79 03/21/24 04:24 Blood Pressure Mean 95 03/21/24 04:24 Blood Pressure Position Sitting 03/21/24 04:24 Pulse Oximetry 99 03/21/24 04:24 Oxygen Delivery Method Room Air 03/21/24 04:24 Vital Signs Temperature 98.0 F 03/21/24 04:24 Pulse Rate 73 03/21/24 04:24 Respiratory Rate 20 03/21/24 04:24 Blood Pressure 129/79 03/21/24 04:24 Pulse Oximetry 99 03/21/24 04:24 Oxygen Delivery Method Room Air 03/21/24 04:24 Temperature 98.0 F 03/21/24 04:24 Pulse Rate 73 03/21/24 04:24 Respiratory Rate 20 03/21/24 04:24 Blood Pressure 129/79 03/21/24 04:24 Pulse Oximetry 99 03/21/24 04:24 Oxygen Delivery Method Room Air 03/21/24 04:24 Medications Administered Medications: Discontinued Medications Generic Name Dose Route Start Last Admin Trade Name Lexxq PRN Reason Stop Dose Admin Sodium Chloride 500 mls @ 1,000 mls/hr 03/21/24 04:50 03/21/24 05:44 0.9 % Sodium Chloride 500 Ml IV 03/21/24 05:19 Infused .Q30M ONE Infusion Medical Decision Making Lab Data Lab results reviewed: Yes I reviewed the patient's lab results Lab results narrative: Very mild leukocytosis with elevated CRP. Cardiac workup reassuring. No dehydration or abnormal renal function. Viral swabs are also negative. Lab is having trouble reporting these but gave me a verbal that strep and viral swabs were negative. Labs: Lab Results 03/21/24 03/21/24 Range/Units 05:04 05:05 WBC 11.26 H (4.50-11.00) K/uL RBC 4.96 (4.00-5.20) m/uL Hgb 13.4 (12.0-16.0) gm/dL Hct 42.2 (33.0-51.0) % MCV 85 (80-100) fL MCH 27 (26-34) pg MCHC 32 (32-36) gm/dL RDW Coeff of Cynthia 12.9 (11.5-15.5) % Plt Count 214 (140-440) K/uL Neut % (Auto) 73.6 H (42.0-72.0) % Lymph % (Auto) 14.7 L (20-44) % Rice % (Auto) 9.2 (0.0-11.0) % Eos % (Auto) 2.0 (0.0-7.0) % Baso % (Auto) 0.2 (0.0-3.0) % Neut # (Auto) 8.30 H (1.7-7.0) K/uL Lymph # (Auto) 1.70 (0.90-2.90) K/uL Rice # (Auto) 1.00 H (0.00-0.90) K/UL Eos # (Auto) 0.20 (0.00-0.50) K/uL Baso # (Auto) 0.00 (0.00-0.30) K/uL Abs Immat Gran (auto) 0.00 (0.00-0.30) K/uL Imm/Tot Granulo (auto) 0.3 % Sodium 137 (135-149) mmol/L Potassium 4.0 (3.6-5.1) mmol/L Chloride 106 (96-114) mmol/L Carbon Dioxide 26 (20-32) mmol/L Anion Gap 5 L (7-15) mEq/L BUN 11 (5-24) mg/dL Creatinine 0.7 (0.5-1.5) mg/dL Estimated Creat Clear 90.36 Estimated GFR 108 ml/min Glucose 95 (60-115) mg/dL Calcium 9.2 (8.4-10.6) mg/dL Magnesium 1.9 (1.5-2.6) mg/dL C-Reactive Protein 13.6 H (0.5-1.0) mg/dL NT-Pro-B Natriuret Pep 108 pg/mL POC Troponin I 0.00 L (0.01-0.04) ng/ml Imaging Data Chest x-ray: Attestation: I have reviewed the pertinent imaging results. My impression: Normal chest x-ray. Pneumonia improved from November. No focal consolidations, cardiac enlargement or effusions. Radiologist's impression: IMPRESSION: No evidence of active pulmonary disease. Dictated by Michael Little MD @ 03/21/2024 5:24:18 AM ECG Data Attestation: I personally reviewed and interpreted this ECG as follows: Prior ECG tracings: available for review Interpretation: Normal sinus rhythm, rate in the 70s. Comparison 12/03. Normal intervals and axis. No significant ST or T-wave abnormalities. Good R-wave progression. Normal EKG. Discharge Plan Discharge Clinical Impression: Nonsustained supraventricular tachycardia, Influenza-like illness Patient Disposition: Home w/ Parent or Adult Condition: Improved Instructions: Zio (Home Heart Monitor) Additional Instructions: As we discussed, your chest x-ray looks great. Your labs show an elevated inflammatory marker which is consistent with your acute illness. Viral swabs and strep were negative. No signs of electrolyte abnormality, kidney problem, dehydration or other significant abnormality. This is great news. There were no signs of abnormal heart rhythm here in the ED but I do suspect that you had episodes of supraventricular tachycardia. It is important that we get more information about how often this happens or if there are any other dangerous underlying heart rhythms. Because of this, I a.m. recommending that we do a ZIO patch. This is an ambulatory heart rhythm monitor that you can wear and will help us get more information about any possible abnormalities. You will need to follow-up with your primary care doctor and return this per the instructions given separately. I suspect that your fever and other symptoms are related to an influenza like viral illness. The swabs are not perfectly accurate but they were negative here in the ED. You are not in a window were antiviral medication would be recommended. Continue pushing fluids. Use Tylenol 1000 mg every 6 hours and or ibuprofen 600 mg every 6 hours as needed for headache, body aches and sore throat. Follow-up in the clinic if her symptoms do not improve in 1 weeks time from now. Return to the ED with any severe symptoms like severe shortness of breath, persistently abnormal heart rhythm, severe chest pain, etc.. Please call your primary care doctor to schedule a follow-up appointment regarding the ZIO patch results in 3 weeks. Activity Level: Activity as Tolerated Discharge Diet: Regular Prescriptions: No Action cetirizine 10 mg tablet 10 mg PO DAILY albuterol sulfate 2.5 mg /3 mL (0.083 %) solution for nebulization 2.5 mg inhalation Q4H Qty: 75 3RF albuterol sulfate 90 mcg/actuation HFA aerosol inhaler 2 puff inhalation Q4H PRN (Reason: Asthma) Qty: 1 0RF topiramate 200 mg tablet 700 mg PO DAILY furosemide [Lasix] 20 mg tablet 20 mg PO DAILY PRN (Reason: edema) Probiotic 3 billion cell capsule 3,000 mmu cells PO DAILY Qty: 30 0RF Rx Instructions: administer with a meal ipratropium-albuterol 0.5 mg-3 mg(2.5 mg base)/3 mL Solution For Nebulization 2.5 ml inhalation Q4H PRN (Reason: Shortness Of Breath Or Wheezing) Qty: 90 0RF albuterol sulfate 2.5 mg /3 mL (0.083 %) Solution For Nebulization 2.5 mg NEB Q4H PRNQty: 90 0RF albuterol sulfate 90 mcg/actuation HFA aerosol inhaler 1 inh inhalation QID PRN (Reason: shortness of breath or wheezing) Qty: 8.5 0RF citalopram 40 mg tablet 40 mg PO DAILY Qty: 90 0RF fluticasone propion-salmeterol [Advair Diskus] 250-50 mcg/dose blister with device 1 inh inhalation BID Qty: 60 0RF trazodone 50 mg tablet 50 - 100 mg PO QHS Qty: 60 5RF ropinirole 4 mg tablet 4 mg PO QHS Qty: 90 2RF Follow Up/Referrals: Kiran Joshi MD [Primary Care Provider] - 04/14/24 (In 3 weeks to go over ZIO patch results. Please call for appointment) Stand Alone Forms: [employer] Info Instructions
[2024-03-21] MEDS: 0.9 % SODIUM CHLORIDE 500 ML 500 ML 1000 ML IV (05:02)
[2024-03-21 05:12] LABS: Basophils Percent Auto 0.2 % (0.0-3.0); Hematocrit 42.2 % (33.0-51.0); Hemoglobin* 13.4 gm/dL (12.0-16.0); Immature Granulocytes Pct Auto 0.3 %; Lymphocytes Percent Auto 14.7 % (20-44); Mean Corpuscular HGB Conc 32 gm/dL (32-36); Mean Corpuscular Hemoglobin 27 pg (26-34); Mean Corpuscular Volume 85 fL (80-100); Monocytes Percent Auto 9.2 % (0.0-11.0); Neutrophils Percent Auto 73.6 % (42.0-72.0); Platelet Count* 214 K/uL (140-440); RDW Coefficient of Variation % 12.9 % (11.5-15.5); Red Blood Count 4.96 m/uL (4.00-5.20); White Blood Count* 11.26 K/uL (4.50-11.00)
[2024-03-21 05:15] LABS: Slide Review Reflex No
[2024-03-21 05:25] LABS: Chloride* 106 mmol/L (96-114); Sodium* 137 mmol/L (135-149)
[2024-03-21 05:28] LABS: Strep A DNA Probe* NOT DETECTED (Not Detectd)
[2024-03-21 05:28] LABS: Anion Gap 5 mEq/L (7-15); Blood Urea Nitrogen* 11 mg/dL (5-24); Calcium* 9.2 mg/dL (8.4-10.6); Carbon Dioxide* 26 mmol/L (20-32); Creatinine* 0.7 mg/dL (0.5-1.5); Est. Creatinine Clearance* 90.36; Estimated Glomerular Filt Rate 108 ml/min; Glucose* 95 mg/dL (60-115)
[2024-03-21 05:29] LABS: Magnesium* 1.9 mg/dL (1.5-2.6)
[2024-03-21 05:38] LABS: NT Pro B Type NatriureticPept* 108 pg/mL
[2024-03-21 05:41] LABS: C Reactive Protein* 13.6 mg/dL (0.5-1.0)
[2024-03-21 05:43] LABS: PCR FLU A Negative PCR FLU A (Negative); PCR FLU B Negative PCR FLU B (Negative); PCR RSV Negative PCR RSV (Negative); SARS PCR* Negative SARS-CoV-2 (Negative)
[2024-03-21 06:21] VITALS: BP 121/74; PULSE 75; RESP 20; TEMP 36.7; O2SAT 99
== END 2024-03-21 06:26 | disposition home or self-care (01) ==
PROVIDERS: Emergency Provider Family Medicine; PCP Family Medicine
DX: I47.10 Supraventricular tachycardia, unspecified (principal); J11.1 Influenza due to unidentified influenza virus with other respiratory manifestations
CPT/HCPCS: 36415; 71046; 80048; 81003; 83735; 83880; 84484; 85025; 86140; 87631; 87651; 93005; 93246; 94761; 99284; 99285; J7030

== ENCOUNTER 2024-07-20 20:52 | Emergency (ER) | payer OTHER, SELFPAY ==
--- OUTSIDE RECORDS SUMMARY | 2024-07-20 20:54 | XMS_ITS | Clinical Summary ---
Author Organization [facility] Address [address] [place] [address]. 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 Name Role Phone Jarrett Acuña MD Primary Care Provider Allergies Active Allergy Reactions Criticality Noted Date Comments Bee Venom Anaphylaxis High 08/27/2017 Diphenhydramine 08/27/2017 Dystonic Reaction Prochlorperazine 08/27/2017 Dystonic Reaction Promethazine 08/27/2017 Dystonic Reaction Medications CLONAZEPAM PO Take 2-3 mg by mouth At Bedtime Active FUROSEMIDE PO Take 20 mg by mouth daily Active ROPINIROLE HCL PO Take 0.5 mg by mouth 3 times daily Active albuterol (PROAIR HFA/PROVENTIL HFA/VENTOLIN HFA) 108 (90 Base) MCG/ACT Inhaler Inhale 2 puffs into the lungs every 4 hours as needed for shortness of breath / dyspnea or wheezing Active TOPIRAMATE PO Take 200 mg by mouth daily Active EPINEPHrine (EPIPEN/ADRENAC LICK/OR ANY BX GENERIC EQUIV) 0.3 MG/0.3ML injection 2-pack Inject 0.3 mg into the muscle as needed for anaphylaxis Active Active Problems No known active problems Social History Tobacco Use Types Packs/Day Years Used Date Smoking Tobacco: Never Smokeless Tobacco: Never Alcohol Use Standard Drinks/Week Comments Yes 0 (1 standard drink = 0.6 oz pur e alcohol) Adolescent Education Answer Date Record ed Getting School Help Needed Not on file 01/01 Comments Unknown Sex and Gender Information Value Date Recorded Sex Assigned at Female 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 Legal Sex Female 10:42 AM CDT Gender Identity Female 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 Sexual Orientation Lesbian 04/08/2023 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 Last Filed Vital Signs Vital Sign Reading Time Taken Comments Blood Pressure 110/69 11/12/2021 1:34 PM CDT Pulse 93 11/12/2021 1:34 PM CDT Temperature 36.7 C (98 F) 11/12/2021 1:34 PM CDT Respiratory Rate 16 08/30/2017 8:00 PM CDT Oxygen Saturation 95% 11/12/2021 1:34 PM CDT Inhaled Oxygen Concentration - - Weight 102.5 kg (226 lb) 08/30/2017 5:16 PM CDT Height 165.1 cm (5' 5) 08/30/2017 5:16 PM CDT Body Mass Index 37.61 08/30/2017 5:16 PM CDT Plan of Treatment Health Maintenance Due Date Last Done Comments ADVANCE CARE PLANNING 1977 ANNUAL REVIEW OF HM ORDERS 1977 CT COLONOGRAPHY 1977 FIT 1977 FLEX SIG 1977 MAMMO SCREENING 1977 sDNA (Cologuard) 1977 YEARLY PREVENTIVE VISIT 1980 COLONOSCOPY 07/28/1987 COLORECTAL CANCER SCREENING 07/28/1987 HIV SCREENING 1992 HEPATITIS C SCREENING 07/28/1995 HEPATITIS B IMMUNIZATION (1 of 3 - 19+ 3-dose series) 1996 PAP 1998 DTAP/TDAP/TD IMMUNIZATION (1 - Tdap) 2002 LIPID 2017 COVID-19 Vaccine (1 - 2023-2 5 season) 2023 INFLUENZA VACCINE (#1) 2023 5, 01/12/2013, 04/22/2012 PHQ-2 (once per calendar year) 2024 DIABETES SCREENING 09/23/2024 09/23/2021 ZOSTER IMMUNIZATION (1 of 2) 07/28/2027 HPV IMMUNIZATION Aged Out No longer e ligible based on patient's age to complete this topic MENINGITIS IMMUNIZATION Aged Out No l onger eligible based on patient's age to complete this topic Pneumococcal Vaccine: Pediatrics (0 to 5 Years) and At-Risk Patients (6 to 49 Years) Aged Out No longer eligible b ased on patient's age to complete this topic Medical Devices Implanted Type Area Color Weigher Device Identifier Shelf Expiration Date Model / Serial / Lot Stent Ureteral Percuflex Plus [id number] Implanted:Qty: 1 on 08/30/2017 by Brianna Ness MD at [facility] Stent Right: Ureter [employer] 05/05/2020 [id number] / / [id number] Procedures Procedure Name Priority Date/Time Associated Diagnosis Comments BASIC METABOLIC PANEL Routine 09/23/2021 11:33 AM CDT Epilepsy (H) from Last 3 Months or Most Recently Relevant to Health Maintenance Results * (ABNORMAL) Basic metabolic panel (09/23/2021 11:33 AM CDT) Sodium 141 133 - 144 mmol/L 09/24/2021 7:38 AM CDT [facility] Potassium 3.7 3.4 - 5.3 mmol/L 09/24/2021 7:38 AM CDT [facility] Chloride 111(H) 94 - 109 mmol/L 09/24/2021 7:38 AM CDT [facility] Carbon Dioxide (CO2) 23 20 - 32 mmol/L 09/24/2021 7:38 AM CDT [facility] Anion Gap 7 3 - 14 mmol/L 09/24/2021 7:38 AM CDT [facility] Urea Nitrogen 14 7 - 30 mg/dL 09/24/2021 7:38 AM CDT [facility] Creatinine 0.82 0.52 - 1.04 mg/dL 09/24/2021 7:38 AM CDT [facility] Calcium 9.0 8.5 - 10.1 mg/dL 09/24/2021 7:38 AM CDT [facility] Glucose 154(H) 70 - 99 mg/dL 09/24/2021 7:38 AM CDT [facility] GFR Estimate 90 >60 mL/min/1.7 3m2 09/24/2021 7:38 AM CDT [facility] Comment:Effective March 132020 eGFRcr in adults is calculated using the 2020 CKD-EPI creatinine equation which includes age and gender (Julius donato al., NEJM, DOI: 10.1056/EIGXcl6531795) Blood STRUCTURE OF RIGHT UPPER LIMB / Unknown Venipuncture / Unknown 09/23/2021 11:33 AM CDT 09/23/2021 11:33 AM CDT us Kiran Joshi MD LAB - BLOOD ORDERABLES Final Result [facility] [address] Lab (no room number, 1st floor of clinic) [place] [address], [facility] [phone] from Last 3 Months or Most Recently Relevant to Health Maintenance Care 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
--- OUTSIDE RECORDS SUMMARY | 2024-07-20 20:54 | XMS_ITS | Clinical Summary ---
Author Organization [employer] Address [address] [place] [id number] Care Team Providers Care Locomotive Observer Name Role Phone Kiran Joshi MD Primary Care Provider + Allergies Active Allergy Reactions Criticality Noted Date Comments Diphenhydramine Dystonia High 09/18/2015 Dystonic Reaction Prochlorperazine Dystonia High 09/18/2015 Dystonic Reaction Promethazine Dystonia High 09/18/2015 Dystonic Reaction Venom-Honey Bee Anaphylaxis High 08/27/2017 Medications durable medical equipment (DME)Indications:Pe roneal tendinitis of left lower extremity 01EF-M Airselect, Standard, Medium 1 Each 2 Active albuterol HFA (ProAir HFA) 90 mcg/actuation inhaler Inhale 2 puffs by mouth every 4 hours as needed. 8.5 g 3 2 Active lurasidone 60 mg tab Take 60 mg by mouth at bedtime. Active topiramate (TOPAMAX) 200 mg tablet Take 1 Tablet (200 mg) by mouth two times daily. 60 Tablet 6 01/16/2023 11:08 AM CDT 2 Active topiramate (TOPAMAX) 50 mg tablet Take 1 Tablet (50 mg) by mouth at bedtime. 30 Tablet 6 03/13/2022 3:03 PM HOD CARRIER 2 Active clonazePAM (KlonoPIN) 1 mg tablet Take 1 tablet (1 mg) by mouth daily at bedtime 60 Tablet 4 07/18/2022 6:07 AM CDT 3 Active topiramate (TOPAMAX) 100 mg tablet Take 2.5 tablets by mouth 2 times daily for 1 week, then 2.5 tabs in the morning and 3 tabs in evening for 1 week, then 3 tabs by mouth 2 times daily as directed 30 day(s) 180 Tablet 6 04/29/2022 1:08 PM HOD CARRIER 3 Active furosemide (LASIX) 20 mg tablet Take 1 Tablet (20 mg) by mouth once daily if needed for edema 30 Tablet 2 02/06/2023 12:50 AM CDT 3 Active lurasidone (Latuda) 80 mg tablet Take 1 tablet (80 mg) by mouth daily in the evening with food 30 Tablet 4 3 Active topiramate (TOPAMAX) 100 mg tablet Take 3 Tablets (300 mg) by mouth two times daily. 180 Tablet 6 02/06/2023 12:50 AM CDT 3 Active QUEtiapine (SEROQUEL) 25 mg tablet Take up to 3 tablets by mouth daily at bedtime 90 Tablet 4 10/22/2022 2:49 PM CDT 3 Active topiramate (TOPAMAX) 100 mg tablet Take 3 tablets by mouth every morning and 4 tablets every evening. 210 Tablet 6 06/05/2023 10:11 AM HOD CARRIER 3 Active clonazePAM (KlonoPIN) 1 mg tablet Take 1 tablet (1 mg) by mouth daily at bedtime 30 Tablet 4 03/09/2023 5:41 AM HOD CARRIER 3 Active citalopram (CELEXA) 20 mg tablet Take 1 Tablet (20 mg) by mouth once daily with a 40 mg tablet 30 Tablet 4 3 Active citalopram (CELEXA) 40 mg tablet Take 1 Tablet (40 mg) by mouth once daily with a 20 mg tablet 30 Tablet 4 06/05/2023 10:11 AM HOD CARRIER 3 Active cariprazine (Vraylar) 1.5 mg capsule Take 1 Capsule (1.5 mg) by mouth once daily. 30 Capsule 4 3 Active gabapentin (NEURONTIN) 100 mg capsule take 1 to 3 capsules as needed for anxiety twice daily 180 Capsule 1 01/16/2023 11:08 AM CDT 3 Active lurasidone (Latuda) 60 mg tab take 1 tablet in the evening with food 30 Tablet 1 11/24/2022 4:52 AM CDT 3 Active lurasidone (Latuda) 40 mg tablet Take 1 Tablet (40 mg) by mouth once daily with a meal. 30 Tablet 01/16/2023 11:08 AM CDT 3 Active fluticasone propion-salmeteroL (ADVAIR) 250-50 mcg/Dose diskus inhaler Inhale 1 Puff by mouth two times daily. 60 Each 01/16/2023 11:08 AM CDT 3 Active lurasidone (LATUDA) 20 mg tablet Take 1 tablet by mouth once a day 30 Tablet 01/16/2023 11:08 AM CDT 3 Active citalopram (CELEXA) 40 mg tablet Take 1 Tablet (40 mg) by mouth once daily. 30 Tablet 1 08/27/2023 4:48 AM CDT 4 Active albuterol HFA (PRO-AIR; VENTOLIN; PROVENTIL) 90 mcg/actuation inhaler Inhale 2 puffs by mouth every 4-6 hours As Needed for Asthma; No further refills until seen in clinic. 18 g 06/05/2023 10:11 AM HOD CARRIER 4 Active rOPINIRole (REQUIP) 4 mg tablet Take 1 Tablet (4 mg) by mouth at bedtime. 90 Tablet 2 08/27/2023 4:48 AM CDT 4 Active topiramate (TOPAMAX) 100 mg tablet Take 3 Tablets (300 mg) by mouth every morning. Take along with TWO 200mg tablets at bedtime. Total daily dose is 700mg per day. 90 Tablet 5 08/27/2023 4:48 AM CDT 4 Active topiramate (TOPAMAX) 200 mg tablet Take 2 Tablets (400 mg) by mouth at bedtime. Take along with THREE 100mg tablets at bedtime. Total daily dose is 700mg per day. 60 Tablet 5 08/27/2023 4:48 AM CDT 4 Active ondansetron (ZOFRAN ODT) 4 mg disintegrating tabletIndications:N ausea and vomiting, unspecified vomiting type Place 1 Tablet (4 mg) on the tongue every 6 hours if needed for Nausea/Vomit ing for up to 20 doses. 20 Tablet 4 Active Active Problems Problem Noted Date Diagnosed Date Breakthrough seizure 02/22/2022 Immunizations Immunization Administration Dates Next Due Influenza, IIV3 (Age 6-35 mos) 04/22/2012 Influenza, IIV3 (Age >=3 years) 01/06/2017,01/10,01/10/2013,04/22/2012 Influenza, IIV4 02/05/2022, 0,02/01/2019,01/04/2018, 01/10/2015,01/12/2013 Influenza, IIV4 (=>6mos) MDV 01/07/2017 MMR 04/24/2019,12/22/2018 Tdap 12/08/2018 Tdap, Unspecified 01/10/2013 Tetanus/Diptheria 01/10/2013 Family History Medical History Relation Name Comments Cancer-breast No Family History Social History Tobacco Use Types Packs/Day Years Used Date Smoking Tobacco: Never Smokeless Tobacco: Never Tobacco Cessation:Counseling Given: Yes Alcohol Use Standard Drinks/Week Comments Yes 1 (1 standard drink = 0.6 oz pur e alcohol) 1 glass of wine a month Social Connections Answer Date Recorded Frequency of Communication with Friends and Fami ly Not on file 07/11/2022 Comments No Sex and Gender Information Value Date Recorded Sex Assigned at Not on file Legal Sex Female 10:16 AM CDT Gender Identity Not on file Sexual Orientation Not on file Obstetrics History Last Filed Vital Signs Vital Sign Reading Time Taken Comments Blood Pressure 110/67 10/22/2022 5:23 PM CDT Pulse 76 10/22/2022 5:23 PM CDT Temperature 36.8 C (98.2 F) 10/22/2022 1:23 PM CDT Respiratory Rate 16 10/22/2022 5:23 PM CDT Oxygen Saturation 96% 10/22/2022 5:23 PM CDT Inhaled Oxygen Concentration - - Weight 102.1 kg (225 lb) 10/22/2022 1:19 PM CDT Height 162.6 cm (5' 4) 10/22/2022 1:19 PM CDT Body Mass Index 38.62 10/22/2022 1:19 PM CDT Plan of Treatment Health Maintenance Due Date Last Done Comments Depression screening for age 12+ 1989 HIV for age 15-65 1992 Hepatitis C screening for age 18-79 07/28/1995 Pap test for age 21-65 1998 BMI (ht and wt on same day) for age 18+ 10/27/2019 10/26/2018, 05/25/2018, 01/21/2018, Additional history exists Colonoscopy through age 75 2022 Lipids for age 45-75 2022 COVID-19 vaccine series ( season) 2023 03/02/2021, 05/08/2020, 04/09/2020 Mammogram for age 45-75 04/07/2024 04/07/2023 Influenza Vaccine (Season Ended) 2024 02/05/2022, 03/14/2020, 02/01/2019, Additional history exists Tetanus booster 12/08/2028 12/08/2018, 01/10/2013 Tdap Completed 12/08/2018, 01/10/2013 Pneumococcal series for age 6-49 Aged Out No longer eligible based on patient's age to complete this topic Procedures Procedure Name Priority Date/Time Associated Diagnosis Comments XR MAMMO JJ BILAT SCREEN Routine 04/07/2023 5:00 PM HOD CARRIER Visit for screening mammogram from Last 3 Months or Most Recently Relevant to Health Maintenance Results * XR MAMMO JJ BILAT SCREEN (04/07/2023 5:00 PM HOD CARRIER) Anatomical Region Laterality Modality BREASTS, Breast Left, Breast Right Bilateral Mammography Impressions 04/08/2023 12:28 PM HOD CARRIER ACR BI-RADS Category 0: Need Additional Imaging Evaluation RECOMMENDATION: Additional mammogram images and possible ultrasound A member of the breast health care team will contact the patient to schedule the required additional imaging appointment(s). PATIENTS: You will also receive a letter with your examination results in an easy to read format. If you have questions about your results, please contact your referring provider. Narrative 04/08/2023 12:28 PM HOD CARRIER For Patients: As a result of the Century Cures Act, medical imaging exams and procedure reports are released immediately into your electronic medical record. You may view this report before your referring provider. If you have questions, please contact your health care provider. XR MAMMO JJ BILAT SCREEN [[id number]] CLINICAL HISTORY: This is an asymptomatic 47 y.o. patient. INDICATION FOR EXAM: Mammogram Screening. TECHNIQUE: CC & MLO views were obtained. This study was evaluated with the assistance of Computer-Aided Detection. Breast Tomosynthesis was used in interpretation. COMPARISON FILM: This is a baseline study. Findings: Screening mammogram was performed with the assistance of Computer-Aided Detection. Breast Tomosynthesis was used in interpretation. The breasts have scattered areas of fibroglandular density. Right breast: There is an asymmetry at the 4 o'clock position at middle depth. No suspicious finding of the left breast. The remainder of the breast tissue is unremarkable. Kiran Joshi MD MAMMO Final Re sult from Last 3 Months or Most Recently Relevant to Health Maintenance Advance Directives * Full Code (Latest Code Status on File) Date Activated Date Inactivated Comments 02/23/2022 1:05 AM 02/25/2022 4:01 PM Question Answer Comments Code Status Discussion: Reviewed Preferences Care Teams Locomotive Observer Relationship Specialty Start Date End Date Kiran Joshi MD [address] [place] [id number] PCP - General Family Practice 02/23/22
[2024-07-20 21:11] VITALS: BP 102/71; PULSE 82; RESP 20; TEMP 35.9; O2SAT 6; BMI 41.6
--- NOTE | 2024-07-20 21:44 | CRLHL7_ITS ---
For Patients: As a result of the Cures Act, medical imaging exams and procedure reports are released immediately into your electronic medical record. You may view this report before your referring provider. If you have questions, please contact your health care provider. INDICATION: Shortness of breath, cough TECHNIQUE: Chest radiograph 2 views COMPARISON: 03/21/2024 FINDINGS: Mediastinum: The mediastinum is normal in appearance. The heart silhouette is normal in size and morphology. Lung: Both lungs are unremarkable in appearance. No sign of pleural effusion seen. No pneumothorax is identified. Bone and Soft tissue: Unremarkable for age. IMPRESSION: 1. No acute cardiopulmonary disease is seen. Dictated by: Cody Cross MD @ 07/20/2024 22:02:34 (Electronically Signed)
--- NOTE | 2024-07-20 21:53 | ED.GENADULT ---
HPI - General Adult General Chief complaint: Shortness of Breath/Dyspnea Stated complaint: cough, SOB, fever Time Seen by Provider: 07/20/24 21:45 History of Present Illness HPI narrative: This 48-year-old female comes in reporting fever and upper respiratory symptoms over the past 3 or 4 days. She states that her children have strep but she has not been around them over these past several days. 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 She reports fevers measured at 103.5? F. She states that she takes Tylenol and the fever subsides until it wears off and then it resumes. She does report a cough and states that she does not have a sore throat. She arrives here with normal vital signs. Related Data Home Medications ?Medication ?Instructions ?Recorded ?Confirmed ipratropium 0.5 mg-albuterol 3 mg 2.5 ml inhalation Q4H PRN wheezing 07/20/24 07/20/24 (2.5 mg base)/3 mL nebulization soln Previous Rx's ?Medication ?Instructions ?Recorded albuterol sulfate 90 mcg/actuation 2 puff inhalation Q4H PRN Asthma 12/05/23 aerosol inhaler #1 ea ropinirole 4 mg tablet 4 mg PO QHS #90 tabs 06/13/24 citalopram 40 mg tablet 40 mg PO DAILY #30 tabs 07/18/24 Allergies Allergy/AdvReac Type Severity Reaction Status Date / Time bee venom protein (honey bee) Allergy Severe Anaphylaxis Verified 07/20/24 21:23 diphenhydramine Allergy Mild dystonic Verified 07/20/24 21:23 reaction promethazine Allergy Mild dystonic Verified 07/20/24 21:23 reaction prochlorperazine Allergy Unknown dystonic Verified 07/20/24 21:23 reaction Review of Systems Status of ROS: Reports: 10 or more systems reviewed and unremarkable except as noted in History and below Narrative: Constitutional: No weight gain or loss. She reports a fever. Eyes: No discharge. No vision changes. HENT: No congestion, no sore throat, no ear pain. Cardiovascular: No chest pain, no palpitations. Respiratory: No shortness of breath, no wheezes. She reports a cough. Gastrointestinal: No abdominal pain, no vomiting, no diarrhea. Genitourinary: No dysuria, no hematuria. Musculoskeletal: Normal range of motion. Skin: No rashes, no pruritis. Neurological: No dizziness, weakness, sensory change, speech change. Endo/Heme/Allergies: No bruising or bleeding. No polydipsia. Pysch: no suicidality, no anxiety, no insomnia. All other systems reviewed and are negative. [facility] Medical History Partial epilepsy ?G40.109 - Localization-related (focal) (partial) symptomatic epilepsy and epileptic syndromes with simple partial seizures, not intractable, without status epilepticus (ICD-10) Restless legs syndrome ?G25.81 - Restless legs syndrome (ICD-10) Partial epilepsy ?G40.109 - Localization-related (focal) (partial) symptomatic epilepsy and epileptic syndromes with simple partial seizures, not intractable, without status epilepticus (ICD-10) Morbid obesity ?E66.01 - Morbid (severe) obesity due to excess calories (ICD-10) Mild persistent asthma ?J45.30 - Mild persistent asthma, uncomplicated (ICD-10) Major depressive disorder ?F32.9 - Major depressive disorder, single episode, unspecified (ICD-10) Generalized anxiety disorder ?F41.1 - Generalized anxiety disorder (ICD-10) Bipolar disorder ?F31.9 - Bipolar disorder, unspecified (ICD-10) Insomnia ?G47.00 - Insomnia, unspecified (ICD-10) Social History Narrative: , twins, non-smoker, 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, 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, lives in [place] What is your current living situation?: I presently have a place to live Problems where you live: no known problems Problems where you live details: none In the past 12 months, utilities in danger of being shut off: no In past 12 months, lack of transportation kept you from medical appts, meetings, work, or getting things needed for daily living: no In the past 12 mos, have been you worried that your food would run out before you had money to buy more?: never true In the past 12 mos, the food you bought just didn't last and you didn't have money to buy more?: never true Highest level of school completed/degree received: some college, no degree Smoking Status: Former smoker What tobacco products do you use: cigarettes Smoking quit date/years: <= 15 years ago Do you use any of these nicotine containing products: None Second hand tobacco smoke exposure: No How often do you have a drink containing alcohol: never How often do you have six or more drinks on one occasion: Never AUDIT-C Alcohol total score: 0 Non-prescribed substance use: marijuana (any form) Caffeine: Yes How often does anyone, including family, friends and others, physically hurt you: never How often does anyone, including family, friends and others, insult or talk down to you: never How often does anyone, including family, friends and others, threaten you with harm: never How often does anyone, including family, friends and others, scream or curse at you: never service: No Exam Narrative: Exam Narrative: Constitutional: Well-developed, well-nourished, no acute distress. HEENT: Normocephalic, atraumatic. Neck: Normal range of motion. Nontender. Supple. Heart: Regular. No murmurs. Normal rate. Intact distal pulses. Lungs: Clear to auscultation. No chest discomfort. No wheezes, rhonchi, or rales. Abdomen: Normal bowel sounds. Nontender. No rebound tenderness. Genitalia: Deferred. Back: No midline tenderness. Normal range of motion. Extremities: Normal range of motion. No injury. Skin: Intact. No rash. Warm. No erythema or pallor. Neurologic: No altered sensation. No weakness. Alert and oriented. Psychiatric: No suicidality. No anxiety or depression. No insomnia. Nursing notes and vitals signs are reviewed. Const: Vital Signs, click to edit/add: Vital Signs - 24 hr 07/20/24 21:11 Temperature 96.7 F L Pulse Rate [Pulse Oximeter] 82 Respiratory Rate 20 Blood Pressure [Ri ght Upper Arm] 102/71 Pulse Oximetry 6 L Oxygen Delivery Me thod Room Air Course Vital Signs Vital signs: Initial Vital Signs Respiratory Effort Normal 07/20/24 21:10 Respiratory Depth Normal 07/20/24 21:10 Respiratory Pattern Normal 07/20/24 21:10 Vital Signs Temperature 96.7 F L 07/20/24 21:11 Pulse Rate 82 07/20/24 21:11 Respiratory Rate 20 07/20/24 21:11 Blood Pressure 102/71 07/20/24 21:11 Pulse Oximetry 6 L 07/20/24 21:11 Oxygen Delivery Method Room Air 07/20/24 21:11 Temperature 96.7 F L 07/20/24 21:11 Pulse Rate 82 07/20/24 21:11 Respiratory Rate 20 07/20/24 21:11 Blood Pressure 102/71 07/20/24 21:11 Pulse Oximetry 6 L 07/20/24 21:11 Oxygen Delivery Method Room Air 07/20/24 21:11 Medical Decision Making MDM Narrative Medical decision making narrative: This patient comes in reporting cough, body aches, and fever for the past 3 days. Chest x-ray returns negative for infection. Nasal swab does return positive for influenza B. She is beyond the time frame where Tamiflu would help. She did receive an oral dose of dexamethasone 10 mg. I recommended using ussn-kvj-cfojudy medicines as needed and directed. Lab Data Labs: Lab Results 07/20/24 07/20/24 Range/Units 21:33 21:50 SARS-CoV-2 (PCR) Negative SARS-CoV-2 (Negative) Influenza Type A (PCR) Negative PCR FLU A (Negative) Influenza Type B (PCR) POSITIVE PCR FLU B A (Negative) Group A Strep DNA NOT DETECTED (Not Detectd) Discharge Plan Discharge Clinical Impression: Influenza B Patient Disposition: Home, Self-Care Condition: Stable Additional Instructions: Take jxik-ozt-zlugzbi medicines as needed and directed. Follow up with MD or return if worsening. Prescriptions: No Action albuterol sulfate 90 mcg/actuation HFA aerosol inhaler 2 puff inhalation Q4H PRN (Reason: Asthma) Qty: 1 0RF ipratropium-albuterol 0.5 mg-3 mg(2.5 mg base)/3 mL solution for nebulization 2.5 ml INHALATION Q4H PRN (Reason: wheezing) ropinirole 4 mg tablet 4 mg PO QHS Qty: 90 0RF citalopram 40 mg tablet 40 mg PO DAILY Qty: 30 0RF Follow Up/Referrals: Kiran Joshi MD [Primary Care Provider] - Stand Alone [facility]
[2024-07-20 22:13] LABS: PCR FLU A Negative PCR FLU A (Negative); PCR FLU B POSITIVE PCR FLU B (Negative); SARS PCR* Negative SARS-CoV-2 (Negative)
[2024-07-20 22:25] LABS: Strep A DNA Probe* NOT DETECTED (Not Detectd)
--- OUTSIDE RECORDS SUMMARY | 2024-07-20 22:39 | XMS_ITS | Clinical Summary ---
Author Organization [facility] Address [address] [place] [id number] Care Team Providers Care Security Developer Name Role Phone Kiran Joshi MD Primary [...] bedtime. 30 Tablet 6 03/13/2022 3:03 PM BATCH UNIT TREATER 2 Active clonazePAM (KlonoPIN) 1 mg tablet [...] day(s) 180 Tablet 6 04/29/2022 1:08 PM BATCH UNIT TREATER 3 Active furosemide (LASIX) 20 mg tablet [...] evening. 210 Tablet 6 06/05/2023 10:11 AM BATCH UNIT TREATER 3 Active clonazePAM (KlonoPIN) 1 mg tablet Take 1 tablet (1 mg) by mouth daily at bedtime 30 Tablet 4 03/09/2023 5:41 AM BATCH UNIT TREATER 3 Active citalopram (CELEXA) 20 mg tablet Take 1 Tablet (20 mg) by mouth once daily with a 40 mg tablet 30 Tablet 4 3 Active citalopram (CELEXA) 40 mg tablet Take 1 Tablet (40 mg) by mouth once daily with a 20 mg tablet 30 Tablet 4 06/05/2023 10:11 AM BATCH UNIT TREATER 3 Active cariprazine (Vraylar) 1.5 mg capsule [...] in clinic. 18 g 06/05/2023 10:11 AM BATCH UNIT TREATER 4 Active rOPINIRole (REQUIP) 4 mg tablet [...] JJ BILAT SCREEN Routine 04/07/2023 5:00 PM BATCH UNIT TREATER Visit for screening mammogram from Last 3 Months or Most Recently Relevant to Health Maintenance Results * XR MAMMO JJ BILAT SCREEN (04/07/2023 5:00 PM BATCH UNIT TREATER) Anatomical Region Laterality Modality BREASTS, Breast Left, Breast Right Bilateral Mammography Impressions 04/08/2023 12:28 PM BATCH UNIT TREATER ACR BI-RADS Category 0: Need Additional Imaging [...] your referring provider. Narrative 04/08/2023 12:28 PM BATCH UNIT TREATER For Patients: As a result of the Century Cures Act, medical imaging exams and procedure reports are released immediately into your electronic medical record. You may view this report before your referring provider. If you have questions, please contact your health care provider. XR MAMMO JJ BILAT SCREEN [[id number]] CLINICAL HISTORY: This is an asymptomatic 47 [...] Code Status Discussion: Reviewed Preferences Care Teams Security Developer Relationship Specialty Start Date End Date Kiran Joshi MD [address] [place] [id number] PCP - General Family Practice 02/23/22
--- OUTSIDE RECORDS SUMMARY | 2024-07-20 22:40 | XMS_ITS | Clinical Summary ---
Author Organization [facility] Address [address] [place] [address]. [place] [address] Care Team Providers Care Jinriksha Driver Name Role Phone Jarrett Acuña MD Primary [...] Sex Assigned at Female 04/08/2023 10:50 AM TECHNICAL SERVICES ASSISTANT Legal Sex Female 10:42 AM CDT Gender Identity Female 04/08/2023 10:50 AM TECHNICAL SERVICES ASSISTANT Sexual Orientation Lesbian 04/08/2023 10 :50 AM TECHNICAL SERVICES ASSISTANT Last Filed Vital Signs Vital Sign Reading [...] this topic Medical Devices Implanted Type Area Lubrication Worker Device Identifier Shelf Expiration Date Model / Serial / Lot Stent Ureteral Percuflex Plus [id number] Implanted:Qty: 1 on 08/30/2017 by Brianna Ness MD at [facility] Stent Right: Ureter [employer] 05/05/2020 [id number] / / [id number] Procedures Procedure Name Priority Date/Time Associated Diagnosis [...] and gender (Julius donato al., NEJM, DOI: 10.1056/FLCFdf2339946) Blood STRUCTURE OF RIGHT UPPER LIMB / Unknown Venipuncture / Unknown 09/23/2021 11:33 AM CDT 09/23/2021 11:33 AM CDT us Kiran Joshi MD LAB - BLOOD ORDERABLES Final Result [facility] [address] Lab (no room number, 1st floor of clinic) [place] [address], [facility] [phone] from Last 3 Months or Most Recently Relevant to Health Maintenance Care Teams Jinriksha Driver Relationship Specialty Start Date End Date Jarrett Acuña MD [facility] [address] [place] [address] PCP - General Emergency Medicine 08/30/17
[2024-07-20] MEDS: dexAMETHasone 10 MG/ML inj PO (22:58)
== END 2024-07-20 23:03 | disposition home or self-care (01) ==
PROVIDERS: Emergency Provider Emergency Medicine Emergency Medical Services; PCP Family Medicine
DX: J10.1 Influenza due to other identified influenza virus with other respiratory manifestations (principal)
CPT/HCPCS: 71046; 87631; 87651; 99284; J1100

== ENCOUNTER 2024-09-01 10:13 | Emergency (ER) | payer OTHER, SELFPAY ==
--- OUTSIDE RECORDS SUMMARY | 2024-09-01 10:14 | XMS_ITS | Clinical Summary ---
Author Organization [facility] Address [address] [place] [address]. [place] [address] Care Team Providers Care Laminator Preforms Name Role Phone Jarrett Acuña MD Primary [...] Sex Assigned at Female 04/08/2023 10:50 AM PUBLICITY WRITER Legal Sex Female 10:42 AM CDT Gender Identity Female 04/08/2023 10:50 AM PUBLICITY WRITER Sexual Orientation Lesbian 04/08/2023 10 :50 AM PUBLICITY WRITER Last Filed Vital Signs Vital Sign Reading [...] Vaccine (1 - 2023-2 5 season) 2023 PHQ-2 (once per calendar year) 2024 DIABETES SCREENING 09/23/2024 09/23/2021 INFLUENZA VACCINE (Season Ended) 2024 01/10/2015, 01/12/2013, 04/22/2012 ZOSTER IMMUNIZATION (1 of 2) 07/28/2027 HPV [...] this topic Medical Devices Implanted Type Area Tube Coremaker Device Identifier Shelf Expiration Date Model / Serial / Lot Stent Ureteral Percuflex Plus [id number] Implanted:Qty: 1 on 08/30/2017 by Brianna Ness MD at [facility] Stent Right: Ureter [employer] 05/05/2020 [id number] / / [id number] Procedures Procedure Name Priority Date/Time Associated Diagnosis [...] creatinine equation which includes age and gender (Distillery Laborer et al., NEJM, DOI: 10.1056/WEMAui8903305) Blood STRUCTURE OF RIGHT UPPER LIMB / Unknown Venipuncture / Unknown 09/23/2021 11:33 AM CDT 09/23/2021 11:33 AM CDT us Kiran Joshi MD LAB - BLOOD ORDERABLES Final Result [facility] [address] Lab (no room number, 1st floor of clinic) [place] [address], [facility] [phone] from Last 3 Months or Most Recently Relevant to Health Maintenance Care Teams Laminator Preforms Relationship Specialty Start Date End Date Jarrett Acuña MD [facility] [address] [place] [address] PCP - General Emergency Medicine 08/30/17
--- OUTSIDE RECORDS SUMMARY | 2024-09-01 10:14 | XMS_ITS | Clinical Summary ---
Author Organization [employer] [facility] [employer] [facility] Address [address] [place] [id number] Care Team Providers Care Classification Control Clerk Name Role Phone Kiran Joshi MD Primary [...] bedtime. 30 Tablet 6 03/13/2022 3:03 PM [facility] 2 Active clonazePAM (KlonoPIN) 1 mg tablet [...] day(s) 180 Tablet 6 04/29/2022 1:08 PM [facility] 3 Active furosemide (LASIX) 20 mg tablet [...] evening. 210 Tablet 6 06/05/2023 10:11 AM [facility]IST 3 Active clonazePAM (KlonoPIN) 1 mg tablet Take 1 tablet (1 mg) by mouth daily at bedtime 30 Tablet 4 03/09/2023 5:41 AM [facility] 3 Active citalopram (CELEXA) 20 mg tablet Take 1 Tablet (20 mg) by mouth once daily with a 40 mg tablet 30 Tablet 4 3 Active citalopram (CELEXA) 40 mg tablet Take 1 Tablet (40 mg) by mouth once daily with a 20 mg tablet 30 Tablet 4 06/05/2023 10:11 AM [facility]IST 3 Active cariprazine (Vraylar) 1.5 mg capsule [...] in clinic. 18 g 06/05/2023 10:11 AM P[facility] SPECIALIST 4 Active rOPINIRole (REQUIP) 4 mg tablet [...] JJ BILAT SCREEN Routine 04/07/2023 5:00 PM P[facility] [employer] [facility] [employer] SPECIALIST Visit for screening mammogram from Last 3 Months or Most Recently Relevant to Health Maintenance Results * XR MAMMO JJ BILAT SCREEN (04/07/2023 5:00 PM P[facility]IAT[employer]IC FOOT AND ANKLE SPECIALIST) Anatomical Region Laterality Modality BREASTS, Breast Left, Breast Right Bilateral Mammography Impressions 04/08/2023 12:28 PM PODIAT[employer]IC FOOT AND ANKLE SPECIALIST ACR BI-RADS Category 0: Need Additional Imaging [...] your referring provider. Narrative 04/08/2023 12:28 PM P[facility]IAT[facility]IC FOOT AND ANKLE SPECIALIST For Patients: As a result of the Century Cures Act, medical imaging exams and procedure reports are released immediately into your electronic medical record. You may view this report before your referring provider. If you have questions, please contact your health care provider. XR MAMMO JJ BILAT SCREEN [[id number]] CLINICAL HISTORY: This is an asymptomatic 47 [...] Code Status Discussion: Reviewed Preferences Care Teams Classification Control Clerk Relationship Specialty Start Date End Date Kiran Joshi MD [address] [place] [id number] PCP - General Family Practice 02/23/22
[2024-09-01 10:36] VITALS: BP 128/84; PULSE 90; RESP 20; TEMP 36.8; O2SAT 94; BMI 42.8
--- NOTE | 2024-09-01 11:29 | ED_ITS ---
HPI - General Adult General Date Seen: 09/01/24 Chief complaint: Extremity Pain/Injury, Upper Stated complaint: right upper arm shoulder injury Time Seen by Provider: 09/01/24 11:19 History of Present Illness HPI narrative: Patient is a 49-year-old woman who presents for evaluation of her right shoulder. Yesterday, she donated plasma which she has done before without difficulty, but yesterday they were not able to give her any fluids afterwards or give for her blood back. She says that she went home at 5, at about 6:00 a.m. she says she was starting to not feel very well so she stood up to go to the kitchen to get something to drink. After she stood up she felt lightheaded and passed out. She says she landed on a big pile of cardboard in her kitchen, and initially did not feel like she had any injury, she says that when she tried to stand up though she felt very lightheaded again did not even make it to full standing before she passed out a 2nd time and that time she hit her right arm on her wooden hearth. She woke up and made it to the couch, she says that she laid there, went to sleep and woke up at 10:00 p.m. feeling improved, was able to get something to drink and today feels back to normal. She says that at baseline she does not have very high blood pressure and she was worried that she might have trouble after the plasma donation. She did not have any other antecedent symptoms prior to passing out and does not otherwise concerned about that event. She is concerned about her right shoulder which has today she is not able to move due to pain. Internal rotation and abduction causes the most pain. No radiating pain. No chest pain, difficulty breathing, head or neck pain. She is not anticoagulated. She does not smoke, does not drink significantly. Related Data Home Medications ?Medication ?Instructions ?Recorded ?Confirmed ipratropium 0.5 mg-albuterol 3 mg 2.5 ml inhalation Q4 H PRN wheezing 07/20/24 09/01/24 (2.5 mg base)/3 mL nebulization soln Previous Rx's ?Medication ?Instructions ?Recorded albuterol sulfate 90 mcg/actuation 2 puff inhalation Q 4H PRN Asthma 12/05/23 aerosol inhaler #1 ea ropinirole 4 mg tablet 4 mg PO QHS #90 tabs 5 citalopram 40 mg tablet 40 mg PO DAILY #30 tabs 12/04 Allergies Allergy/AdvReac Type Severity Reaction Status Date / Time bee venom protein (honey bee) Allergy Severe Anaphylaxis Verified 09/01/24 10:48 diphenhydramine Allergy Mild dystonic Verified 09/01/24 10:48 reaction promethazine Allergy Mild dystonic Verified 09/01/24 10:48 reaction prochlorperazine Allergy Unknown dystonic Verified 09/01/24 10:48 reaction Review of Systems Status of ROS: Reports: 6 or more systems reviewed and unremarkable except as noted in History and below [facility] Medical History Partial epilepsy ?G40.109 - Localization-related (focal) (partial) symptomatic epilepsy and epileptic syndromes with simple partial seizures, not intractable, without status epilepticus (ICD-10) Restless legs syndrome ?G25.81 - Restless legs syndrome (ICD-10) Partial epilepsy ?G40.109 - Localization-related (focal) (partial) symptomatic epilepsy and epileptic syndromes with simple partial seizures, not intractable, without status epilepticus (ICD-10) Morbid obesity ?E66.01 - Morbid (severe) obesity due to excess calories (ICD-10) Mild persistent asthma ?J45.30 - Mild persistent asthma, uncomplicated (ICD-10) Major depressive disorder ?F32.9 - Major depressive disorder, single episode, unspecified (ICD-10) Generalized anxiety disorder ?F41.1 - Generalized anxiety disorder (ICD-10) Bipolar disorder ?F31.9 - Bipolar disorder, unspecified (ICD-10) Insomnia ?G47.00 - Insomnia, unspecified (ICD-10) Social History Narrative: , twins, 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, 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, 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, 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 [place] What is your current living situation?: I presently have a place to live Problems where you live: no known problems Problems where you live details: none In the past 12 months, utilities in danger of being shut off: no In past 12 months, lack of transportation kept you from medical appts, meetings, work, or getting things needed for daily living: no In the past 12 mos, have been you worried that your food would run out before you had money to buy more?: never true In the past 12 mos, the food you bought just didn't last and you didn't have money to buy more?: never true Highest level of school completed/degree received: some college, no degree Smoking Status: Former smoker What tobacco products do you use: cigarettes Smoking quit date/years: <= 15 years ago Do you use any of these nicotine containing products: None Second hand tobacco smoke exposure: No How often do you have a drink containing alcohol: never How often do you have six or more drinks on one occasion: Never AUDIT-C Alcohol total score: 0 Non-prescribed substance use: marijuana (any form) Caffeine: Yes How often does anyone, including family, friends and others, physically hurt you : never How often does anyone, including family, friends and others, insult or talk down to you: never How often does anyone, including family, friends and others, threaten you with harm: never How often does anyone, including family, friends and others, scream or curse at you: never service: No Exam Narrative: Exam Narrative: Vital signs reviewed In general, alert, nontoxic med age woman. Head: Normocephalic, atraumatic. Eyes: Sclera clear. Pupils equal and reactive. ENT: Mucous membranes moist. Neck: Supple without adenopathy. For nontender to palpation. Heart: Regular rate and rhythm without murmur. Lungs: A few scattered wheezes, no increased work of breathing. Chest is nontender, no crepitus or subcu air. No visible trauma. Abdomen: Soft, nontender to palpation. Extremities: Her right upper extremity she has a faint bruise on the back of her upper arm. Her pain is primarily in the shoulder, she has minimal active range of motion, I am able to abduct to about 90? although she says it is painful. Limited internal and external rotation both active and passive. Distal CMS is intact. No visible deformity. Neurologic: Alert, conversant. Speech fluent, face symmetric. Moves all extremities equally. Skin: Warm, dry well perfused. Affect: Normal. Const: Vital Signs, click to edit/add: Vital Signs - 24 hr 09/01/24 10:36 Temperature 98.3 F Pulse Rate [Pulse Oximeter] 90 Respiratory Rate 20 Blood Pressure [Ri ght Upper Arm] 128/84 Pulse Oximetry 94 Oxygen Delivery Me thod Room Air Course Course ED Course: She had x-rays of the right shoulder which by my review are negative for any acute bony pathology. Radiology read these as negative aside from degenerative changes of the AC joint. I went in to talk to her about her x-ray she is actually moving the shoulder quite a bit better than she was on my initial interaction with her, rather than holding it fixed against her body she will abducted to 90? on her own and is showing much better internal and external rotation as well. Discussed that at this time there is no evidence of bony injury, this does not rule out ligamentous or muscular injury. She has this direct bruised and possibly just bruised her deltoid muscle, recommended conservative treatment with ice and ibuprofen for couple of days, if she does not feel that she is gradually improving recommend orthopedic follow-up, discussed that she may need additional imaging to determine if there are other internal injuries. Given a sling, discussed the importance of regular range of motion to avoid frozen shoulder. Her syncope yesterday sounds to have been clearly orthostatic and related to her plasma donation, given that she is not concerned about and is no longer symptomatic I do not think she needs other workup for that. Vital Signs Vital signs: Initial Vital Signs Temperature 98.3 F 09/01/24 10:36 Temperature Source Temporal Artery Scan 09/01/24 10:36 Pulse Rate 90 09/01/24 10:36 Pulse Rhythm Regular 09/01/24 10:36 Respiratory Rate 20 09/01/24 10:36 Blood Pressure 128/84 09/01/24 10:36 Blood Pressure Mean 98 09/01/24 10:36 Blood Pressure Position Sitting 09/01/24 10:36 Pulse Oximetry 94 09/01/24 10:36 Oxygen Delivery Method Room Air 09/01/24 10:36 Vital Signs Temperature 98.3 F 09/01/24 10:36 Pulse Rate 90 09/01/24 10:36 Respiratory Rate 20 09/01/24 10:36 Blood Pressure 128/84 09/01/24 10:36 Pulse Oximetry 94 09/01/24 10:36 Oxygen Delivery Method Room Air 09/01/24 10:36 Temperature 98.3 F 09/01/24 10:36 Pulse Rate 90 09/01/24 10:36 Respiratory Rate 20 09/01/24 10:36 Blood Pressure 128/84 09/01/24 10:36 Pulse Oximetry 94 09/01/24 10:36 Oxygen Delivery Method Room Air 09/01/24 10:36 Discharge Plan Discharge Clinical Impression: Injury of right shoulder Patient Disposition: Home, Self-Care Condition: Improved Instructions: How to Use a Sling (ED) Additional Instructions: Conservative treatment for a couple of days, ibuprofen 400 mg 3 times daily, ice liberally. If you do not find here gradually improving, follow-up with orthopedics [phone]. Your x-rays today do not show any evidence of bony injury but this does not rule out ligamentous or muscular injury. Make sure to remove the sling and do some gentle range of motion several times a day to avoid developing frozen shoulder. Prescriptions: No Action albuterol sulfate 90 mcg/actuation HFA aerosol inhaler 2 puff inhalation Q4H PRN (Reason: Asthma) Qty: 1 0RF ipratropium-albuterol 0.5 mg-3 mg(2.5 mg base)/3 mL solution for nebulization 2.5 ml INHALATION Q4H PRN (Reason: wheezing) ropinirole 4 mg tablet 4 mg PO QHS Qty: 90 0RF citalopram 40 mg tablet 40 mg PO DAILY Qty: 30 0RF Follow Up/Referrals: Kiran Joshi MD [Primary Care Provider, Family Practice] Stand Alone Forms: [employer] Info Instructions
--- NOTE | 2024-09-01 11:29 | CRLHL7_ITS ---
For Patients: As a result of the Cures Act, medical imaging exams and procedure reports are released immediately into your electronic medical record. You may view this report before your referring provider. If you have questions, please contact your health care provider. Indication: Fall Technique: Three views of the right shoulder Comparison: None Findings/Impression: No acute fracture or malalignment. Mild degenerate changes of the acromioclavicular joint. No suspicious osseous lesions. The soft tissues are unremarkable. Dictated by Hemanth Hoffman MD @ 09/01/2024 12:07:37 PM (Electronically Signed)
== END 2024-09-01 13:10 | disposition home or self-care (01) ==
LOC: ED 12:38
PROVIDERS: Emergency Provider Emergency Medicine; PCP Family Medicine
DX: M25.511 Pain in right shoulder (principal); W01.198A Fall on same level from slipping, tripping and stumbling with subsequent striking against other object, initial encounter
CPT/HCPCS: 73030; 99283; 99284

== ENCOUNTER 2024-09-20 15:57 | Outpatient (CLI) | payer OTHER, SELFPAY | END 2024-09-20 15:58 | disposition home or self-care (01) | PROVIDERS: PCP Family Medicine; Visit Provider Family Medicine | DX: R73.9 Hyperglycemia, unspecified (principal); R53.83 Other fatigue; E66.01 Morbid (severe) obesity due to excess calories; Z68.41 Body mass index [BMI] 40.0-44.9, adult; Z13.21 Encounter for screening for nutritional disorder; Z13.0 Encounter for screening for diseases of the blood and blood-forming organs and certain disorders involving the immune mechanism | CPT/HCPCS: 80053; 80061; 82306; 82607; 82728; 84443 ==

== ENCOUNTER 2024-10-26 15:44 | Outpatient (CLI) | payer OTHER, SELFPAY ==
[2024-10-30 07:00] LABS: HPV Source Cervix
== END 2024-10-26 15:45 | disposition home or self-care (01) ==
PROVIDERS: PCP Family Medicine; Visit Provider Obstetrics & Gynecology
DX: N95.1 Menopausal and female climacteric states (principal); Z12.4 Encounter for screening for malignant neoplasm of cervix; Z11.51 Encounter for screening for human papillomavirus (HPV)
CPT/HCPCS: 87624; 87625; 88141; 88142

== ENCOUNTER 2024-11-14 10:45 | Outpatient (CLI) | payer OTHER, SELFPAY ==
--- NOTE | 2024-11-14 10:45 | CRLHL7_ITS ---
For Patients: As a result of the Century Cures Act, medical imaging exams and procedure reports are released immediately into your electronic medical record. You may view this report before your referring provider. If you have questions, please contact your health care provider. INDICATION: BILATERAL SCREENING MAMMOGRAM, ASYMPTOMATIC 49 Y/O FEMALE COMPARISON: 04/07/2023 TECHNIQUE: Digital mammogram in CC and MLO projections including computer-aided detection (CAD) and tomosynthesis. BREAST COMPOSITION: The breasts are almost entirely fatty. FINDINGS: No suspicious findings. ASSESSMENT: BI-RADS 1 Negative RECOMMENDATION: Annual screening mammogram. A lay language report of this examination will be provided to the patient. Dictated by: Kiran Mcconnell MD @ 11/15/2024 08:56:41 (Electronically Signed)
== END 2024-11-14 10:46 | disposition home or self-care (01) ==
PROVIDERS: PCP Family Medicine; Visit Provider Family Medicine
DX: Z12.31 Encounter for screening mammogram for malignant neoplasm of breast (principal)
CPT/HCPCS: 77063; 77067

== ENCOUNTER 2024-12-27 15:39 | Outpatient (CLI) | payer OTHER, SELFPAY ==
--- NOTE | 2025-01-02 12:04 | W.PM.SLEEP ---
Sleep Study Details Details Interpreting Provider: Arsen Date of Sleep Study: 12/27/24 Sleep Study Details: STUDY TYPE:? home unattended ? BMI:? 43.59 ORDERING PROVIDER:Israel Leger INDICATION:? concern for sleep apnea ? SLEEP SUMMARY:? 151.1 minutes monitored RESPIRATORY SUMMARY:? AHI 22.6 per rule 1A, 19.9 per CMS guideline Low oxygen 81 75.6% of study oxygen less than 90% Snoring 60.3% PERIODIC LIMB MOVEMENTS OF SLEEP:? not recorded CARDIAC:? range 35-99, mean 79.2 beats per minute IMPRESSION:? moderate obstructive sleep apnea with significant hypoxia during 75% of the study. Bradycardia was also noted was a low heart rate of 35 during sleep. RECOMMENDATION: Weight loss is recommended. For the obstructive sleep apnea treatment options include CPAP would favor in-lab titration or dental appliance. Weight loss is also recommended. Further cardiac evaluation may be indicated.
== END 2024-12-27 15:40 | disposition home or self-care (01) ==
LOC: SLEEP 15:40
PROVIDERS: PCP Family Medicine; Visit Provider Otolaryngology
DX: G47.33 Obstructive sleep apnea (adult) (pediatric) (principal)
CPT/HCPCS: 95806